=== PATIENT | female | born 1995 | race Caucasian/White ===

== ENCOUNTER 2017-09-26 02:10 | Emergency (ER) | payer SELFPAY ==
[2017-09-26 02:31] LABS: ADD MAN DIFF? NO
[2017-09-26 02:34] LABS: URINE HCG POC HCG NEGATIVE (Negative)
[2017-09-26 02:34] LABS: BASO % 1 % (0-3); EOS # 0.3 x10^3/uL (0.0-0.7); EOS % 3 % (0-3); HEMATOCRIT 37.8 % (36.0-47.0); HEMOGLOBIN 13.1 g/dL (12.0-15.5); LYMPH # 2.1 x10^3/uL (1.0-4.8); LYMPH % 26 % (24-48); MEAN CORPUSCULAR HEMOGLOBIN 29 pg (25-35); MEAN CORPUSCULAR HGB CONC 35 g/dL (31-37); MEAN CORPUSCULAR VOLUME 85 fL (79-100); MONO # 0.7 x10^3/uL (0.0-1.1); MONO % 9 % (0-9); NEUT # 4.8 x10^3uL (1.8-7.7); NEUT % 61 % (31-73); PLATELET COUNT 225 x10^3/uL (140-400); RED BLOOD COUNT 4.47 x10^6/uL (3.50-5.40); RED CELL DISTRIBUTION WIDTH 13.9 % (11.5-14.5); WHITE BLOOD COUNT 7.9 x10^3/uL (4.0-11.0)
[2017-09-26 02:38] LABS: BILIRUBIN,URINE NEGATIVE (NEG); CLARITY,URINE CLEAR; COLOR,URINE YELLOW; GLUCOSE,URINE NEGATIVE (NEG); NITRITE,URINE NEGATIVE (NEG); PH,URINE 6.5; PROTEIN,URINE NEGATIVE (NEG-TRACE); UROBILINOGEN,URINE 0.2 mg/dL (0.2 mg/dL)
[2017-09-26 02:42] LABS: ANION GAP 11 (6-14); BLOOD UREA NITROGEN 15 mg/dL (7-20); BUN/CREATININE RATIO 14 (6-20); CALCIUM 8.4 mg/dL (8.5-10.1); CARBON DIOXIDE 27 mmol/L (21-32); CHLORIDE 106 mmol/L (98-107); CREATININE 1.1 mg/dL (0.6-1.0); GFR 62.1; GLUCOSE 80 mg/dL (70-99); POTASSIUM 3.7 mmol/L (3.5-5.1); SODIUM 144 mmol/L (136-145)
[2017-09-26 02:48] LABS: ALBUMIN 3.2 g/dL (3.4-5.0); ALBUMIN/GLOBULIN RATIO 0.9 (1.0-1.7); ALK PHOS 76 U/L (46-116); ALT (SGPT) 27 U/L (14-59); AST (SGOT) 28 U/L (15-37); BACTERIA,URINE MOD /HPF (0-FEW); RBC,URINE 20-40 /HPF (0-2); SQUAMOUS EPITHELIAL CELL,UR MOD /LPF; TOTAL BILIRUBIN 0.2 mg/dL (0.2-1.0); TOTAL PROTEIN 6.9 g/dL (6.4-8.2)
[2017-09-26] MEDS: KETOROLAC 30 MG/ML INJ. IV (03:16)
[2017-09-26] MEDS: MORPHINE SULFATE 4 MG/ML DISP.SYRIN. IV (03:16)
[2017-09-26] MEDS: ONDANSETRON PF 4 MG/2 ML VIAL. IV (03:16)
[2017-09-26] MEDS: HYDROmorphone 2 MG/ML VIAL IV (04:05)
== END 2017-09-26 04:50 | disposition home or self-care (01) ==
LOC: ER 02:10
DX: N83.209 Unspecified ovarian cyst, unspecified side (principal); F12.10 Cannabis abuse, uncomplicated
CPT/HCPCS: 36415; 76830; 76856; 80053; 81001; 81025; 85025; 96374; 96375; 99285-25; J1170; J1885; J2270; J2405

== ENCOUNTER 2017-10-11 07:10 | Emergency (ER) | payer SELFPAY ==
[2017-10-11 07:58] LABS: ADD MAN DIFF? NO
[2017-10-11 08:01] LABS: BASO # 0.1 x10^3/uL (0.0-0.2); BASO % 1 % (0-3); EOS # 0.3 x10^3/uL (0.0-0.7); EOS % 4 % (0-3); HEMATOCRIT 43.7 % (36.0-47.0); LYMPH % 33 % (24-48); MEAN CORPUSCULAR HEMOGLOBIN 29 pg (25-35); MEAN CORPUSCULAR HGB CONC 34 g/dL (31-37); MEAN CORPUSCULAR VOLUME 85 fL (79-100); MONO # 0.9 x10^3/uL (0.0-1.1); MONO % 10 % (0-9); NEUT # 4.7 x10^3uL (1.8-7.7); NEUT % 53 % (31-73); PLATELET COUNT 273 x10^3/uL (140-400); RED BLOOD COUNT 5.14 x10^6/uL (3.50-5.40); WHITE BLOOD COUNT 8.9 x10^3/uL (4.0-11.0)
[2017-10-11] MEDS: ONDANSETRON PF 4 MG/2 ML VIAL. IV (08:02)
[2017-10-11] MEDS: IV NORMAL SALINE 1000ML BAG 1,000 ML IV (08:02)
[2017-10-11] MEDS: fentaNYL PF VIAL 100 MCG/2 ML VIAL IV (08:03)
[2017-10-11 08:04] LABS: BILIRUBIN,URINE NEGATIVE (NEG); CLARITY,URINE CLEAR; COLOR,URINE YELLOW; GLUCOSE,URINE NEGATIVE (NEG); NITRITE,URINE NEGATIVE (NEG); PROTEIN,URINE NEGATIVE (NEG-TRACE)
[2017-10-11 08:13] LABS: NEG OBC SER NEG; PREG TEST PT QUAL NEGATIVE (NEG)
[2017-10-11 08:14] LABS: ANION GAP 11 (6-14); BLOOD UREA NITROGEN 13 mg/dL (7-20); BUN/CREATININE RATIO 14 (6-20); CALCIUM 8.7 mg/dL (8.5-10.1); CARBON DIOXIDE 23 mmol/L (21-32); CHLORIDE 105 mmol/L (98-107); CREATININE 0.9 mg/dL (0.6-1.0); GFR 78.3; GLUCOSE 92 mg/dL (70-99); POS OBC SER POS; POTASSIUM 3.7 mmol/L (3.5-5.1); SODIUM 139 mmol/L (136-145)
[2017-10-11 08:18] LABS: SQUAMOUS EPITHELIAL CELL,UR MANY /LPF
[2017-10-11 08:19] LABS: ALBUMIN 3.7 g/dL (3.4-5.0); ALK PHOS 89 U/L (46-116); ALT (SGPT) 27 U/L (14-59); AST (SGOT) 20 U/L (15-37); BACTERIA,URINE MODERATE /HPF (0-FEW); RBC,URINE 0 /HPF (0-2); TOTAL BILIRUBIN 0.4 mg/dL (0.2-1.0); TOTAL PROTEIN 7.5 g/dL (6.4-8.2)
[2017-10-11] MEDS: KETOROLAC 30 MG/ML INJ. IV (10:55)
== END 2017-10-11 11:15 | disposition home or self-care (01) ==
LOC: ER 07:10
DX: N83.202 Unspecified ovarian cyst, left side (principal); N83.201 Unspecified ovarian cyst, right side; F90.9 Attention-deficit hyperactivity disorder, unspecified type; F12.10 Cannabis abuse, uncomplicated
CPT/HCPCS: 36415; 76830; 76856; 80053; 81001; 84703; 85025; 87086; 96374; 96375; 99285-25; J1885; J2405; J3010; J7030

== ENCOUNTER 2017-11-16 18:40 | Emergency (ER) | payer SELFPAY ==
[2017-11-16 19:34] LABS: ADD MAN DIFF? NO
[2017-11-16 19:38] LABS: BASO % 0 % (0-3); EOS # 0.1 x10^3/uL (0.0-0.7); EOS % 1 % (0-3); HEMATOCRIT 41.9 % (36.0-47.0); HEMOGLOBIN 13.9 g/dL (12.0-15.5); LYMPH # 1.4 x10^3/uL (1.0-4.8); LYMPH % 10 % (24-48); MEAN CORPUSCULAR HEMOGLOBIN 28 pg (25-35); MEAN CORPUSCULAR HGB CONC 33 g/dL (31-37); MEAN CORPUSCULAR VOLUME 85 fL (79-100); MONO # 0.8 x10^3/uL (0.0-1.1); MONO % 6 % (0-9); NEUT % 84 % (31-73); PLATELET COUNT 225 x10^3/uL (140-400); RED BLOOD COUNT 4.93 x10^6/uL (3.50-5.40); WHITE BLOOD COUNT 14.4 x10^3/uL (4.0-11.0)
[2017-11-16 19:44] LABS: BILIRUBIN,URINE NEGATIVE (NEG); CLARITY,URINE CLEAR; COLOR,URINE YELLOW; GLUCOSE,URINE NEGATIVE (NEG); NITRITE,URINE NEGATIVE (NEG); PROTEIN,URINE NEGATIVE (NEG-TRACE); UROBILINOGEN,URINE 0.2 mg/dL (0.2 mg/dL)
[2017-11-16 19:45] LABS: URINE HCG POC HCG NEGATIVE (Negative)
[2017-11-16] MEDS: ONDANSETRON PF 4 MG/2 ML VIAL. IV (19:47)
[2017-11-16] MEDS: fentaNYL PF VIAL 100 MCG/2 ML VIAL IV ×3 (19:48→22:03)
[2017-11-16 19:49] LABS: ANION GAP 10 (6-14); BLOOD UREA NITROGEN 12 mg/dL (7-20); BUN/CREATININE RATIO 12 (6-20); CALCIUM 8.9 mg/dL (8.5-10.1); CARBON DIOXIDE 26 mmol/L (21-32); CHLORIDE 106 mmol/L (98-107); GFR 69.3; GLUCOSE 86 mg/dL (70-99); POTASSIUM 3.7 mmol/L (3.5-5.1); SODIUM 142 mmol/L (136-145)
[2017-11-16 19:54] LABS: BACTERIA,URINE FEW /HPF (0-FEW); RBC,URINE TNTC /HPF (0-2); WBC,URINE OCC /HPF (0-4)
[2017-11-16 19:55] LABS: SQUAMOUS EPITHELIAL CELL,UR FEW /LPF
[2017-11-16 19:56] LABS: ALBUMIN 3.7 g/dL (3.4-5.0); ALBUMIN/GLOBULIN RATIO 0.9 (1.0-1.7); ALK PHOS 88 U/L (46-116); ALT (SGPT) 22 U/L (14-59); AST (SGOT) 17 U/L (15-37); LIPASE 78 U/L (73-393); TOTAL BILIRUBIN 0.3 mg/dL (0.2-1.0); TOTAL PROTEIN 7.6 g/dL (6.4-8.2)
[2017-11-16] MEDS ORDERED: CONTRAST GIVEN. MC (20:45)
[2017-11-16] MEDS: IOHEXOL 300 MG/ML 100ML VIAL. IV (20:45)
[2017-11-16] MEDS: IV NORMAL SALINE 1000ML BAG 1,000 ML IV (21:51)
[2017-11-16] MEDS ORDERED: IV NORMAL SALINE 1000ML BAG 1,000 ML IV (22:00)
== END 2017-11-16 22:32 | disposition home or self-care (01) ==
LOC: ER 22:32
DX: R10.84 Generalized abdominal pain (principal); N93.9 Abnormal uterine and vaginal bleeding, unspecified; R11.0 Nausea
CPT/HCPCS: 36415; 74177; 76830; 80053; 81001; 81025; 83690; 85025; 96361; 96374; 96375; 96376; 99285-25; J2405; J3010; J7030; Q9967

== ENCOUNTER 2018-01-20 16:35 | Emergency (ER) | payer SELFPAY ==
[~2018-01-20] VITALS: Ht 162.6 cm; Wt 68.0 kg
[~2018-01-20 16:35] MED LIST: HYDR-971 PO; ONDA4TAB10 SL; OXYC-323 PO; TRAM50TA PO
[2018-01-20 17:14] VITALS: BP 97/57
--- NOTE | 2018-01-20 18:10 | RAD ---
Indication: Generalized back pain. Pain since from spinal tap 2 years ago. TECHNIQUE: 3 views of the thoracic spine COMPARISON: None FINDINGS: Thoracic spine is in normal anatomic alignment. No compression deformities. No intervertebral disc space narrowing or significant productive changes to suggest degenerative disc disease. Heart is normal in size. Visualized lungs are clear. IMPRESSION: No acute findings. Electronically signed by: Tarun Starr DO (01/20/2018 6:07 PM) [facility]
--- NOTE | 2018-01-20 18:11 | RAD ---
Indication: Generalized back pain TECHNIQUE: 3 views of the lumbar spine COMPARISON: None FINDINGS: There are 5 lumbar type vertebral bodies. The lumbar spine demonstrates loss of normal lumbar lordosis. This could be due to muscle spasm or positioning. No compression deformities. No intervertebral disc space narrowing or productive changes to suggest degenerative disc disease. SI joints within normal limits. IMPRESSION: No acute findings. Electronically signed by: Tarun Starr DO (01/20/2018 6:08 PM) [facility]
--- NOTE | 2018-01-20 18:17 | PHYS DOC ---
Past Medical History Past Medical History: Bipolar, Depression, Endometriosis Additional Past Medical Histor: ADHD MULTIPLE PERSONALITIES Past Surgical History: No Surgical History Alcohol Use: Occasionally Drug Use: Marijuana Adult General Chief Complaint Chief Complaint: SORE THROAT HPI HPI Patient is a 22 year old female who presents with bilateral dental pain, back pain and a sore throat. The patient states that she is scheduled to have a root canals done on 2 of her back bottom teeth. She is currently taking amoxicillin for the dental pain. She states that she has had back pain ever since she had an epidural placed 2 years ago. She states that she also has developed a sore throat. She denies fevers, nausea or vomiting. She denies spontaneous loss of bowel or bladder or foot drop. Review of Systems Review of Systems Constitutional: Denies fever or chills [] Eyes: Denies change in visual acuity, redness, or eye pain [] HENT: See history of present illness Respiratory: Denies cough or shortness of breath [] Cardiovascular: No additional information not addressed in HPI [] GI: Denies abdominal pain, nausea, vomiting, bloody stools or diarrhea [] : Denies dysuria or hematuria [] Musculoskeletal: See history of present illness Integument: Denies rash or skin lesions [] Neurologic: Denies headache, focal weakness or sensory changes [] Endocrine: Denies polyuria or polydipsia [] All other systems were reviewed and found to be within normal limits, except as documented in this note. Allergies Allergies Allergies Coded Allergies Type Severity Reaction Last Updated Verified No Known Drug Allergies 08/11/14 No Physical Exam Physical Exam Constitutional: Well developed, well nourished, no acute distress, non-toxic appearance. [] HENT: Normocephalic, atraumatic, bilateral external ears normal, the patient has a lower molar on each side that has a filling, mild pharyngeal erythema noted with no exudate Eyes: PERRLA, EOMI, conjunctiva normal, no discharge. [] Neck: Normal range of motion, no tenderness, supple, no stridor. [] Cardiovascular:Heart rate regular rhythm, no murmur [] Lungs & Thorax: Bilateral breath sounds clear to auscultation [] Abdomen: Bowel sounds normal, soft, no tenderness, no masses, no pulsatile masses. [] Skin: Warm, dry, no erythema, no rash. [] Back: Point spinal tenderness with no deformity or step-off noted, no CVA tenderness. [] Extremities: No tenderness, no cyanosis, no clubbing, ROM intact, no edema. [] Neurologic: Alert and oriented X 3, normal motor function, normal sensory function, no focal deficits noted. [] Psychologic: Affect normal, judgement normal, mood normal. [] Current Patient Data Vital Signs Vital Signs Date Time Temp Pulse Resp B/P (MAP) Pulse Ox O2 Delivery O2 Flow Rate FiO2 01/20/18 17:14 98.1 78 18 97/57 (70) 99 Room Air 98.1 Lab Values Laboratory Tests Test 01/20/18 17:27 01/20/18 17:35 Group A Streptococcus Rapid Negative (NEGATIVE) POC Urine HCG, Qualitative Hcg negative (Negative) EKG EKG [] Radiology/Procedures Radiology/Procedures []PATIENT: PATRICK HE AACCOUNT: [id number]#: [id number] : 1995 LOCATION: ER AGE: 22 SEX: F EXAM STATUS: REG ER ORD. PHYSICIAN: ROBERTA CHERY APRN REASON: back pain. PROCEDURE: THORACIC SPINE 3V Indication: Generalized back pain. Pain since from spinal tap 2 years ago. TECHNIQUE: 3 views of the thoracic spine COMPARISON: None FINDINGS: Thoracic spine is in normal anatomic alignment. No compression deformities. No intervertebral disc space narrowing or significant productive changes to suggest degenerative disc disease. Heart is normal in size. Visualized lungs are clear. IMPRESSION: No acute findings. Electronically signed by: Tarun Starr DO (01/20/2018 6:07 PM) [facility] DICTATED and SIGNED BY: TARUN STARR DO DATE: 01/20/18 1806 PATIENT: PATRICK HE A ACCOUNT: [id number] : 1995 LOCATION: ER AGE: 22 SEX: F EXAM STATUS: REG ER ORD. PHYSICIAN: ROBERTA CHERY APRN REASON: back pain. PROCEDURE: LUMBAR SPINE 2-3V Indication: Generalized back pain TECHNIQUE: 3 views of the lumbar spine COMPARISON: None FINDINGS: There are 5 lumbar type vertebral bodies. The lumbar spine demonstrates loss of normal lumbar lordosis. This could be due to muscle spasm or positioning. No compression deformities. No intervertebral disc space narrowing or productive changes to suggest degenerative disc disease. SI joints within normal limits. IMPRESSION: No acute findings. Electronically signed by: Tarun Starr DO (01/20/2018 6:08 PM) [facility] DICTATED and SIGNED BY: TARUN STARR DO DATE: 01/20/181806 Course & Med Decision Making Course & Med Decision Making Pertinent Labs and Imaging studies reviewed. (See chart for details) []I explained to the patient that the amoxicillin she is currently taking for her teeth would treat any form of strep throat. Her strep test and test were both negative in the emergency department. Imaging did not find an acute cause for her chronic back pain. She is encouraged to follow up with her primary care provider for further investigation. Staff Physician Addendum: I was working in the ER during the course of this patient's visit. I was available for consultation as needed, but I was not directly involved in the care of this patient. Dragon Disclaimer Dragon Disclaimer This electronic medical record was generated, in whole or in part, using a voice recognition dictation system. Departure Departure Impression: Primary Impression: Back pain Additional Impression: Pharyngitis Disposition: 01 HOME, SELF-CARE Condition: STABLE Referrals: NO PCP (PCP) Patient Instructions: Back Pain, Adult, [id number], Viral and Bacterial Pharyngitis Additional Instructions: Continue to take the amoxicillin for your tooth. Follow-up with your dentist for your scheduled root canals. Follow-up with a primary care provider or a neurosurgeon for reevaluation of your chronic back pain. The amoxicillin your currently taking for your tooth should clear any form of bacterial pharyngitis. Viral pharyngitis may take 3-5 days to resolve. You may use salt water gargles. You may take ibuprofen or Tylenol for pain. Problem Qualifiers ROBERTA CHERY APRN Jan 20, 2018 18:17 PURNIMA STRICKLAND MD Jan 21, 2018 17:55
== END 2018-01-20 18:26 | disposition home or self-care (01) ==
LOC: ER 16:35
DX: J02.9 Acute pharyngitis, unspecified (principal); K08.89 Other specified disorders of teeth and supporting structures; M54.9 Dorsalgia, unspecified; F31.9 Bipolar disorder, unspecified
CPT/HCPCS: 72072; 72100; 81025; 87070; 87880; 99285-25

== ENCOUNTER 2018-03-26 09:43 | Emergency (ER) | payer SELFPAY ==
[~2018-03-26] VITALS: Ht 162.6 cm; Wt 72.6 kg
[2018-03-26 09:54] VITALS: BP 110/61
[2018-03-26] MEDS ORDERED: NAPROXEN 500 MG TABLET PO STA (09:58)
[2018-03-26] MEDS ORDERED: CYCL10TA2 PO (10:08)
[2018-03-26] MEDS ORDERED: METH4TAB2 PO (10:08)
[2018-03-26] MEDS ORDERED: DICL50TA4 PO (10:08)
--- NOTE | 2018-03-26 10:08 | PHYS DOC ---
Past Medical History Past Medical History: Bipolar, Depression, Endometriosis Additional Past Medical Histor: ADHD MULTIPLE PERSONALITIES Past Surgical History: No Surgical History Alcohol Use: None Drug Use: Marijuana Adult General Chief Complaint Chief Complaint: LOWER BACK PAIN OR INJURY [facility] HPI Patient is a 22 year old female who presents complaining of 9 out of 10 throbbing bilateral low back pain radiating to bilateral lower extremities that appears to be chronic since 2012. Patient denies any known injury. Denies any loss of bowel bladder function. Has been taking ibuprofen with no relief. Review of Systems Review of Systems Constitutional: Denies fever or chills [] History of things we didn't like us to unnecessar Respiratory: Denies cough or shortness of breath [] Cardiovascular: No additional information not addressed in HPI [] GI: Denies abdominal pain, nausea, vomiting, bloody stools or diarrhea [] : Denies dysuria or hematuria [] Musculoskeletal: Denies back pain or joint pain [] Integument: Denies rash or skin lesions [] Neurologic: Denies headache, focal weakness or sensory changes [] All other systems were reviewed and found to be within normal limits, except as documented in this note. Current Medications Current Medications Current Medications Medications (Trade) Dose Ordered Sig/Monique Start Time Stop Time Status Last Admin Dose Admin Acetaminophen/ Hydrocodone Bitart (Lortab 5/325) 2 tab 1X ONCE 03/26/18 10:30 03/26/18 10:31 Cyclobenzaprine HCl (Flexeril) 10 mg 1X ONCE 03/26/18 10:00 03/26/18 10:01 UNV Naproxen (Naprosyn) 500 mg 1X STAT 03/26/18 09:58 03/26/18 09:59 UNV Allergies Allergies Allergies Coded Allergies Type Severity Reaction Last Updated Verified No Known Drug Allergies 08/11/14 No Physical Exam Physical Exam Constitutional: Well developed, well nourished, no acute distress, non-toxic appearance. [] Cardiovascular:Heart rate regular rhythm, no murmur [] Lungs & Thorax: Bilateral breath sounds clear to auscultation [] Abdomen: Bowel sounds normal, soft, no tenderness, no masses, no pulsatile masses. [] Skin: Warm, dry, no erythema, no rash. [] Back: Diffuse tenderness bilateral lumbar spine, no midline lumbar spine tenderness, no CVA tenderness. Positive bilateral straight leg raises Extremities: No tenderness, no cyanosis, no clubbing, ROM intact, no edema. [] Neurologic: Alert and oriented X 3, normal motor function, normal sensory function, no focal deficits noted. [] Psychologic: Affect normal, judgement normal, mood normal. [] Current Patient Data Vital Signs Vital Signs Date Time Temp Pulse Resp B/P (MAP) Pulse Ox O2 Delivery O2 Flow Rate FiO2 03/26/18 09:54 98.5 99 18 110/61 (77) 98 Room Air 98.5 EKG EKG [] Radiology/Procedures Radiology/Procedures [] Course & Med Decision Making Course & Med Decision Making Pertinent Labs and Imaging studies reviewed. (See chart for details) This is a 22-year-old female patient presenting to the ED today with chronic low back pain with sciatica, no known injury. Will be discharged with cyclobenzaprine, Medrol Dosepak and diclofenac. Follow-up with PCP in 1-2 weeks. Heat to ice recommended to the lumbar spine. Dragon Disclaimer Dragon Disclaimer This electronic medical record was generated, in whole or in part, using a voice recognition dictation system. Departure Departure Impression: Primary Impression: Chronic low back pain Additional Impressions: Sciatica of right side Sciatica of left side Disposition: 01 HOME, SELF-CARE Condition: STABLE Referrals: NO PCP (PCP) KAREN RODRIGUEZ MD follow up next week Patient Instructions: Chronic Back Pain, Sciatica Additional Instructions: You were evaluated in the emergency room for chronic low back pain with sciatica. We highly recommend you follow-up with your own primary care doctor. Take the prescribed medicines as needed for pain. You can apply heat or ice to the lumbar spine. Come back to the ED at any point symptoms worsen. Scripts Methylprednisolone (MEDROL) 4 Mg Tab.ds.pk 1 PKG PO UD, #1 PKG Prov: [employer] 03/26/18 Cyclobenzaprine Hcl (CYCLOBENZAPRINE HCL) 10 Mg Tablet 1 TAB PO TID, #30 TAB Prov: [employer] MA[employer]GER 03/26/18 Diclofenac Sodium (DICLOFENAC SODIUM) 50 Mg Tablet.dr 1 TAB PO BID, #20 TAB 0 Refills Prov: [employer] MA[employer]GER 03/26/18 Problem Qualifiers Primary Impression: Chronic low back pain Back pain laterality: bilateral Sciatica presence: with sciatica Sciatica laterality: bilateral sciatica Qualified Codes: M54.42 - Lumbago with sciatica, left side; M54.41 - Lumbago with sciatica, right side; G89.29 - Other chronic pain CLINTON LAWLER APRN Mar 26, 2018 10:08
[2018-03-26] MEDS ORDERED: CYCLOBENZAPRINE 10 MG TABLET. PO ONE (10:30)
[2018-03-26] MEDS ORDERED: HYDROcodone/APAP 5/325MG 1 TAB TABLET PO ONE (10:30)
== END 2018-03-26 10:18 | disposition home or self-care (01) ==
LOC: ER 09:43
DX: M54.42 Lumbago with sciatica, left side (principal); M54.41 Lumbago with sciatica, right side; G89.29 Other chronic pain; F31.9 Bipolar disorder, unspecified; F90.9 Attention-deficit hyperactivity disorder, unspecified type
CPT/HCPCS: 99284

== ENCOUNTER 2018-06-17 09:09 | Emergency (ER) | payer SELFPAY ==
[~2018-06-17] VITALS: Ht 162.6 cm; Wt 61.2 kg
[~2018-06-17 09:09] MED LIST changes: +CYCL10TA2 PO; +DICL50TA4 PO; +HYDR-3164 PO; -HYDR-971 PO; +METH4TAB2 PO; -OXYC-323 PO; +OXYC1TAB15 PO
[2018-06-17] MEDS ORDERED: FAMOTIDINE 20 MG/2 ML VIAL IVP ONE (09:30)
[2018-06-17] MEDS ORDERED: IV NORMAL SALINE 1000ML BAG 1,000 ML IV ONE (09:30)
--- NOTE | 2018-06-17 09:34 | PHYS DOC ---
Past Medical History Past Medical History: Bipolar, Depression, Endometriosis Additional Past Medical Histor: ADHD MULTIPLE PERSONALITIES Past Surgical History: No Surgical History Alcohol Use: None Drug Use: Marijuana Adult General Chief Complaint Chief Complaint: NAUSEA/VOMITING/DIARRHA HPI HPI Patient is a 22 year old female with history of bipolar, endometriosis, depression, who presents today with chronic nausea and vomiting. Patient states symptoms have been going on for a long time. Patient states she intermittently has generalized 6 out of 10 abdominal pain. She states she's been worked up for this abdominal pain before and they could not find any acute cause for her symptoms. Denies any fever urgency frequency or dysuria. Denies any hematuria. She states she smokes marijuana. Review of Systems Review of Systems Constitutional: Denies fever or chills [] Eyes: Denies change in visual acuity, redness, or eye pain [] HENT: Denies nasal congestion or sore throat [] Respiratory: Denies cough or shortness of breath [] Cardiovascular: No additional information not addressed in HPI [] GI: Reports nausea, vomiting, generalized abdominal pain, denies bloody stools or diarrhea [] : Denies dysuria or hematuria [] Musculoskeletal: Denies back pain or joint pain [] Integument: Denies rash or skin lesions [] Neurologic: Denies headache, focal weakness or sensory changes [] All other systems were reviewed and found to be within normal limits, except as documented in this note. Current Medications Current Medications Current Medications Medications (Trade) Dose Ordered Sig/Monique Start Time Stop Time Status Last Admin Dose Admin Famotidine (Pepcid Vial) 20 mg 1X ONCE 06/17/18 09:30 06/17/18 09:33 DC 06/17/18 10:28 20 MG Sodium Chloride 1,000 ml @ 1,000 mls/hr 1X ONCE 06/17/18 09:30 06/17/18 10:29 DC 06/17/18 10:28 1,000 MLS/HR Allergies Allergies Allergies Coded Allergies Type Severity Reaction Last Updated Verified No Known Drug Allergies 08/11/14 No Physical Exam Physical Exam Constitutional: Well developed, well nourished, no acute distress, non-toxic appearance. [] HENT: Normocephalic, atraumatic, bilateral external ears normal, oropharynx moist, no oral exudates, nose normal. [] Eyes: PERRLA, EOMI, conjunctiva normal, no discharge. [] Neck: Normal range of motion, no tenderness, supple, no stridor. [] Cardiovascular:Heart rate regular rhythm, no murmur [] Lungs & Thorax: Bilateral breath sounds clear to auscultation [] Abdomen: Rounded abdomen. Bowel sounds normal, soft, no tenderness, no masses, no pulsatile masses. [] Skin: Warm, dry, no erythema, no rash. [] Back: No tenderness, no CVA tenderness. [] Extremities: No tenderness, no cyanosis, no clubbing, ROM intact, no edema. [] Neurologic: Alert and oriented X 3, normal motor function, normal sensory function, no focal deficits noted. [] Psychologic: Affect normal, judgement normal, mood normal. [] Current Patient Data Vital Signs Vital Signs Date Time Temp Pulse Resp B/P (MAP) Pulse Ox O2 Delivery O2 Flow Rate FiO2 06/17/18 09:21 97.8 75 16 105/74 (84) 99 Room Air 97.8 Lab Values Laboratory Tests Test 06/17/18 09:25 06/17/18 09:35 06/17/18 09:44 06/17/18 10:26 Urine Collection Type Unknown Urine Color Yellow Urine Clarity Clear Urine pH 5.5 Urine Specific [place] 1.020 Urine Protein Negative mg/dL (NEG-TRACE) Urine Glucose (UA) Negative mg/dL (NEG) Urine Ketones (Stick) Negative mg/dL (NEG) Urine Blood Negative (NEG) Urine Nitrite Negative (NEG) Urine Bilirubin Negative (NEG) Urine Urobilinogen Dipstick 0.2 mg/dL (0.2 mg/dL) Urine Leukocyte Esterase Negative (NEG) Urine RBC 0 /HPF (0-2) Urine WBC Occ /HPF (0-4) Urine Squamous Epithelial Cells Occ /LPF Urine Bacteria 0 /HPF (0-FEW) Urine Mucus Mod /LPF Urine Opiates Screen Neg (NEG) Urine Methadone Screen Neg (NEG) Urine Barbiturates Neg (NEG) Urine Phencyclidine Screen Neg (NEG) Urine Amphetamine/Methamphetamine Neg (NEG) Urine Benzodiazepines Screen Neg (NEG) Urine Cocaine Screen Neg (NEG) Urine Cannabinoids Screen Pos (NEG) Urine Ethyl Alcohol Neg (NEG) White Blood Count 9.1 x10^3/uL (4.0-11.0) Red Blood Count 4.71 x10^6/uL (3.50-5.40) Hemoglobin 13.8 g/dL (12.0-15.5) Hematocrit 40.5 % (36.0-47.0) Mean Corpuscular Volume 86 fL (79-100) Mean Corpuscular Hemoglobin 29 pg (25-35) Mean Corpuscular Hemoglobin Concent 34 g/dL (31-37) Red Cell Distribution Width 13.9 % (11.5-14.5) Platelet Count 219 x10^3/uL (140-400) Neutrophils (%) (Auto) 72 % (31-73) Lymphocytes (%) (Auto) 17 % (24-48) L Monocytes (%) (Auto) 7 % (0-9) Eosinophils (%) (Auto) 3 % (0-3) Basophils (%) (Auto) 1 % (0-3) Neutrophils # (Auto) 6.6 x10^3uL (1.8-7.7) Lymphocytes # (Auto) 1.6 x10^3/uL (1.0-4.8) Monocytes # (Auto) 0.6 x10^3/uL (0.0-1.1) Eosinophils # (Auto) 0.2 x10^3/uL (0.0-0.7) Basophils # (Auto) 0.1 x10^3/uL (0.0-0.2) Ethyl Alcohol Level < 10 mg/dL (0-10) POC Urine HCG, Qualitative Hcg negative (Negative) Sodium Level 140 mmol/L (136-145) Potassium Level 3.8 mmol/L (3.5-5.1) Chloride Level 106 mmol/L (98-107) Carbon Dioxide Level 24 mmol/L (21-32) Anion Gap 10 (6-14) Blood Urea Nitrogen 9 mg/dL (7-20) Creatinine 0.8 mg/dL (0.6-1.0) Estimated GFR (Cockcroft-Gault) 89.7 BUN/Creatinine Ratio 11 (6-20) Glucose Level 98 mg/dL (70-99) Calcium Level 8.8 mg/dL (8.5-10.1) Total Bilirubin 0.2 mg/dL (0.2-1.0) Aspartate Amino Transferase (AST) 22 U/L (15-37) Alanine Aminotransferase (ALT) 37 U/L (14-59) Alkaline Phosphatase 79 U/L (46-116) Total Protein 6.5 g/dL (6.4-8.2) Albumin 3.0 g/dL (3.4-5.0) L Albumin/Globulin Ratio 0.9 (1.0-1.7) L Lipase 50 U/L (73-393) L Laboratory Tests 06/17/18 09:35 Laboratory Tests 06/17/18 10:26 EKG EKG [] Radiology/Procedures Radiology/Procedures [] Course & Med Decision Making Course & Med Decision Making Pertinent Labs and Imaging studies reviewed. (See chart for details) This is a 22-year-old female patient presenting to the ED today with nausea, vomiting and generalized abdominal pain that is chronic in nature. Patient uses marijuana. She was educated to consider not using this drug considering its side effects of marijuana induced nausea and vomiting. CBC, CMP, lipase negative for any acute findings. Negative urine hCG, urine analysis is negative for infection, UDS noted for marijuana use. Patient was advised to consider not using marijuana. Discharged with Zofran. Provided GI for follow-up. Dragon Disclaimer Dragon Disclaimer This electronic medical record was generated, in whole or in part, using a voice recognition dictation system. Departure Departure Impression: Primary Impression: Cyclic vomiting syndrome Additional Impression: Marijuana use Disposition: 01 HOME, SELF-CARE Condition: STABLE Referrals: ROSAURA TAO DO (PCP) Follow-up with your own doctor in one week CEM MARRERO MD Follow-up in one week Patient Instructions: Cyclic Vomiting Syndrome, Marijuana Abuse-Brief Additional Instructions: You were evaluated in the emergency room for nausea vomiting and abdominal pain , we highly suspect your symptoms are coming from marijuana use, consider not using this drug. Scripts Ondansetron (ONDANSETRON ODT) 4 Mg Tab.rapdis 1 TAB PO PRN Q6-8HRS, #16 TAB Prov: CLINTON LAWLER ALEIDA 06/17/18 Problem Qualifiers Primary Impression: Cyclic vomiting syndrome Vomiting Intractability: non-intractable Nausea presence: with nausea Qualified Codes: G43.A0 - Cyclical vomiting, not intractable CLINTON LAWLER ALEIDA Jun 17, 2018 09:34
[2018-06-17 09:47] LABS: BASO # 0.1 x10^3/uL (0.0-0.2); BASO % 1 % (0-3); EOS # 0.2 x10^3/uL (0.0-0.7); EOS % 3 % (0-3); HEMATOCRIT 40.5 % (36.0-47.0); HEMOGLOBIN 13.8 g/dL (12.0-15.5); LYMPH # 1.6 x10^3/uL (1.0-4.8); LYMPH % 17 % (24-48); MEAN CORPUSCULAR HEMOGLOBIN 29 pg (25-35); MEAN CORPUSCULAR HGB CONC 34 g/dL (31-37); MEAN CORPUSCULAR VOLUME 86 fL (79-100); MONO # 0.6 x10^3/uL (0.0-1.1); MONO % 7 % (0-9); NEUT # 6.6 x10^3uL (1.8-7.7); NEUT % 72 % (31-73); PLATELET COUNT 219 x10^3/uL (140-400); RED BLOOD COUNT 4.71 x10^6/uL (3.50-5.40); RED CELL DISTRIBUTION WIDTH 13.9 % (11.5-14.5); WHITE BLOOD COUNT 9.1 x10^3/uL (4.0-11.0)
[2018-06-17 09:53] LABS: BILIRUBIN,URINE NEGATIVE (NEG); CLARITY,URINE CLEAR; COLOR,URINE YELLOW; NITRITE,URINE NEGATIVE (NEG); PH,URINE 5.5; PROTEIN,URINE NEGATIVE (NEG-TRACE); UROBILINOGEN,URINE 0.2 mg/dL (0.2 mg/dL)
[2018-06-17 10:06] LABS: BACTERIA,URINE 0 /HPF (0-FEW); RBC,URINE 0 /HPF (0-2); SQUAMOUS EPITHELIAL CELL,UR OCC /LPF; WBC,URINE OCC /HPF (0-4)
[2018-06-17 10:08] LABS: BARBITURATES NEG (NEG); BENZODIAZEPINES NEG (NEG); CANNABINOIDS POS (NEG); COCAINE NEG (NEG); METHADONE NEG (NEG); OPIATES NEG (NEG); PHENCYCLIDINE NEG (NEG)
[2018-06-17 10:12] LABS: AMPHETAMINE/METHAMPHETAMINE NEG (NEG)
[2018-06-17 11:26] LABS: ALBUMIN/GLOBULIN RATIO 0.9 (1.0-1.7); CALCIUM 8.8 mg/dL (8.5-10.1); CREATININE 0.8 mg/dL (0.6-1.0); GFR 89.7; POTASSIUM 3.8 mmol/L (3.5-5.1); TOTAL BILIRUBIN 0.2 mg/dL (0.2-1.0); TOTAL PROTEIN 6.5 g/dL (6.4-8.2)
[2018-06-17] MEDS ORDERED: ONDA4TAB12 PO (12:22)
[2018-06-17 12:25] VITALS: BP 99/56
== END 2018-06-17 12:32 | disposition home or self-care (01) ==
LOC: ER 09:09
DX: G43.A0 Cyclical vomiting, in migraine, not intractable (principal); F12.20 Cannabis dependence, uncomplicated; R10.84 Generalized abdominal pain; F31.9 Bipolar disorder, unspecified; F90.9 Attention-deficit hyperactivity disorder, unspecified type
CPT/HCPCS: 36415; 80053; 80307; 81001; 81025; 83690; 85025; 96361; 96374; 99284; G0480; J3490; J7030; 99285-25

== ENCOUNTER 2019-04-25 01:13 | Emergency (ER) | payer SELFPAY ==
[~2019-04-25] VITALS: Ht 165.1 cm; Wt 90.7 kg
[~2019-04-25 01:13] MED LIST changes: +ONDA4TAB12 PO
[2019-04-25 01:25] VITALS: BP 116/65
--- NOTE | 2019-04-25 01:44 | PHYS DOC ---
Past Medical History Past Medical History: Bipolar, Depression, Endometriosis, Other Additional Past Medical Histor: ADHD,MULTIPLE PERSONALITIES Past Surgical History: No Surgical History Alcohol Use: None Drug Use: Marijuana Adult General Chief Complaint Chief Complaint: BREAST PAIN/INJURY HPI HPI Patient is a 23 year old female bilateral breast pain 2 weeks. This evening, the patient's right breast bothers her more than the right. Patient has large pendulous breasts with history of chronic back pain for which she sees a chiropractor. She denies nipple discharge, rash, erythema, warmth or risk of . Does not report lumps or masses. Patient states she is exclusively in a lesbian relationship. [] Review of Systems Review of Systems Review symptoms as per history of present illness. All other systems were reviewed and found to be within normal limits, except as documented in this note. Current Medications Current Medications Current Medications Medications (Trade) Dose Ordered Sig/Monique Start Time Stop Time Status Last Admin Dose Admin Acetaminophen (Tylenol) 1,000 mg 1X ONCE 04/25/19 01:30 04/25/19 01:31 UNV Ibuprofen (Motrin) 800 mg 1X ONCE 04/25/19 01:30 04/25/19 01:31 UNV Allergies Allergies Allergies Coded Allergies Type Severity Reaction Last Updated Verified No Known Drug Allergies 08/11/14 No Physical Exam Physical Exam Constitutional: Well developed, well nourished, no acute distress, non-toxic appearance. [] HENT: Normocephalic, atraumatic, bilateral external ears normal, oropharynx moist, no oral exudates, nose normal. [] Eyes: PERRLA, EOMI, conjunctiva normal, no discharge. [] Lungs & Thorax: Bilateral breath sounds clear to auscultation [] Breast: Large symmetric pendulous breasts without inflammation, erythema, rash or areolar discharge. No appreciated masses. Generalized tenderness of right upper pole of breast. [] Neurologic: Alert and oriented X 3, normal motor function, normal sensory function, no focal deficits noted. [] Psychologic: Affect normal, judgement normal, mood normal. [] EKG EKG [] Radiology/Procedures Radiology/Procedures [] Course & Med Decision Making Course & Med Decision Making Pertinent Labs and Imaging studies reviewed. (See chart for details) [Ibuprofen Tylenol given. Recommendations are for supportive care follow-up with local PCP for further evaluation and management.] Dragon Disclaimer Dragon Disclaimer This electronic medical record was generated, in whole or in part, using a voice recognition dictation system. Departure Departure Impression: Primary Impression: Breast pain, right Disposition: HOME, SELF-CARE Condition: STABLE Patient Instructions: Breast Tenderness Additional Instructions: Please take ibuprofen and Tylenol for breast pain and follow-up with your local PCP for further evaluation. MYRANDA DIAZ DO Apr 25, 2019 01:44
[2019-04-25] MEDS ORDERED: IBUPROFEN 400 MG TABLET. PO ONE (02:00)
[2019-04-25] MEDS ORDERED: ACETAMINOPHEN 500 MG TABLET PO ONE (02:00)
== END 2019-04-25 02:05 | disposition home or self-care (01) ==
LOC: ER 01:13
DX: N64.4 Mastodynia (principal); G89.29 Other chronic pain
CPT/HCPCS: 99283

== ENCOUNTER 2019-06-10 12:32 | Emergency (ER) | payer SELFPAY ==
[2019-06-10 14:00] VITALS: BP 138/78
[2019-06-10 14:59] LABS: INFLUENZA A PATIENT NEGATIVE (NEGATIVE); INFLUENZA B PATIENT NEGATIVE (NEGATIVE)
[2019-06-10] MEDS ORDERED: ONDANSETRON ODT 4 MG TAB.RAPDIS. PO ONE (15:15)
--- NOTE | 2019-06-10 15:39 | RAD ---
Two-view chest dated 06/10/2019. No comparison available. CLINICAL INDICATION: Cough. FINDINGS: PA and lateral views obtained. Heart and mediastinal contours within normal limits. Lungs are clear. No consolidation or pleural effusion. No pneumothorax. IMPRESSION: No acute radiographic abnormality. Electronically signed by: Marvin May MD (06/10/2019 3:36 PM) [facility]
[2019-06-10] MEDS ORDERED: ACET325T9 PO (16:11)
[2019-06-10] MEDS ORDERED: ONDA4TAB12 PO (16:11)
[2019-06-10] MEDS ORDERED: AZIT250T6 PO (16:11)
[2019-06-10] MEDS ORDERED: METH4TAB2 PO (16:11)
[2019-06-10] MEDS ORDERED: ALBU2.5V8 INH (16:11)
--- NOTE | 2019-06-10 16:12 | PHYS DOC ---
Past Medical History Past Medical History: Anxiety, Bipolar, Depression Additional Past Medical Histor: BORDERLINE PERSONALITY DISORDER Past Surgical History: No Surgical History Alcohol Use: None Drug Use: Marijuana Adult General Chief Complaint Chief Complaint: SORE THROAT HPI HPI Patient is a 23 year old female who presents with nausea, vomiting, fever, cough. 2 days. Patient states today she coughed up some green mucus with blood streaking in it. States she took children's Tylenol pain fever last night to help her fever. Patient rates her pain 9 out of 10. Review of Systems Review of Systems Constitutional: fever or chills [] Eyes: Denies change in visual acuity, redness, or eye pain [] HENT: nasal congestion or sore throat [] Respiratory: cough or shortness of breath [] GI: Denies abdominal pain. + nausea, +vomiting, denies bloody stools or diarrhea [] All other systems were reviewed and found to be within normal limits, except as documented in this note. Current Medications Current Medications Current Medications Medications (Trade) Dose Ordered Sig/Monique Start Time Stop Time Status Last Admin Dose Admin Ondansetron HCl (Zofran Odt) 4 mg 1X ONCE 06/10/19 15:15 06/10/19 15:16 DC 06/10/19 15:26 4 MG Allergies Allergies Allergies Coded Allergies Type Severity Reaction Last Updated Verified No Known Drug Allergies 08/11/14 No Physical Exam Physical Exam Constitutional: Well developed, well nourished, no acute distress, non-toxic appearance. [] HENT: Normocephalic, atraumatic, bilateral external ears normal, oropharynx moist, no oral exudates, nose normal. Throat red with no swelling or exudates. [] Eyes: PERRLA, EOMI, conjunctiva normal, no discharge. [] Neck: Normal range of motion, no tenderness, supple, no stridor. [] Cardiovascular:Heart rate regular rhythm, no murmur [] Lungs & Thorax: Bilateral breath sounds clear to auscultation [] Abdomen: Bowel sounds normal, soft, no tenderness, no masses, no pulsatile masses. [] Skin: Warm, dry, no erythema, no rash. [] Back: No tenderness, no CVA tenderness. [] Extremities: No tenderness, no cyanosis, no clubbing, ROM intact, no edema. [] Neurologic: Alert and oriented X 3, normal motor function, normal sensory function, no focal deficits noted. [] Psychologic: Affect normal, judgement normal, mood normal. [] Current Patient Data Vital Signs Vital Signs Date Time Temp Pulse Resp B/P (MAP) Pulse Ox O2 Delivery O2 Flow Rate FiO2 06/10/19 14:00 98.9 108 17 138/78 (98) 97 98.9 Lab Values Laboratory Tests Test 06/10/19 14:02 Influenza Type A Antigen Negative (NEGATIVE) Influenza Type B Antigen Negative (NEGATIVE) EKG EKG [] Radiology/Procedures Radiology/Procedures [] Impressions: [facility] [address] [place] [address] IMAGING REPORT Signed PATIENT: PATRICK HE AACCOUNT: [id number] : 1995 LOCATION: ER AGE: 23 SEX: F EXAM STATUS: REG ER ORD. PHYSICIAN: PATY PERLA APRN REASON: cough PROCEDURE: CHEST PA & LATERAL Two-view chest dated 06/10/2019. No comparison available. CLINICAL INDICATION: Cough. FINDINGS: PA and lateral views obtained. Heart and mediastinal contours within normal limits. Lungs are clear. No consolidation or pleural effusion. No pneumothorax. IMPRESSION: No acute radiographic abnormality. Electronically signed by: Marvin May MD (06/10/2019 3:36 PM) [facility] DICTATED and SIGNED BY: MARVIN MAY MD DATE: 06/10/19 1536 Course & Med Decision Making Course & Med Decision Making Influenza negative. Strep negative. Alert and oriented. Lungs are clear to auscultation all lobes. Abdomen soft and nontender. Speaks in full clear sentences. Skin pink warm and dry. Mucous membranes are moist. Ambulatory with a steady gait. Vital signs within normal limits. Tympanic so white. Throat is reddened but there is no swelling or exudates. Chest x-ray shows no acute fin dings. I Ordered a breathing treatment and prednisone for the patient. Dragon Disclaimer Dragon Disclaimer This electronic medical record was generated, in whole or in part, using a voice recognition dictation system. Departure Departure Impression: Primary Impression: Cough Additional Impressions: Nausea & vomiting Sore throat Disposition: HOME, SELF-CARE Condition: STABLE Referrals: ROSAURA TAO DO (PCP) Patient Instructions: Cough, Adult, Nausea and Vomiting, [id number], Sore Throat, [id number] Additional Instructions: Follow-up with your primary care provider. Take medications as prescribed. Your chest xray was normal. Scripts Acetaminophen (TYLENOL) 325 Mg Tablet 2 TAB PO PRN Q6HRS, #30 TAB Prov: PATY PERLA APRN 06/10/19 Ondansetron (ONDANSETRON ODT) 4 Mg Tab.rapdis 1 TAB PO PRN Q6-8HRS, #16 TAB Prov: PATY PERLA APRN 06/10/19 Albuterol Sulfate (Proair Hfa) 8.5 Gm Hfa.aer.ad 1 PUFF INH PRN Q6HRS PRN for SHORTNESS OF BREATH, #1 INHALER Prov: PATY PERLA APRN 06/10/19 Methylprednisolone (MEDROL) 4 Mg Tab.ds.pk 1 PKG PO UD, #1 PKG Prov: PATY PERLA APRN 06/10/19 Azithromycin (AZITHROMYCIN TABLET) 250 Mg Tablet 1 PKG PO UD for 5 Days, #6 TAB 0 Refills 2 the first day followed by 1 for days 2-5 Prov: PATY PERLA APRN 06/10/19 Problem Qualifiers Additional Impressions: Nausea & vomiting Vomiting type: unspecified Vomiting Intractability: non-intractable Qualified Codes: R11.2 - Nausea with vomiting, unspecified PATY PERLA INVENTORY COORDINATOR Jun 10, 2019 16:11
== END 2019-06-10 16:20 | disposition home or self-care (01) ==
LOC: ER 12:32
DX: J02.9 Acute pharyngitis, unspecified (principal); R05 Cough; R11.2 Nausea with vomiting, unspecified; R50.9 Fever, unspecified; F41.9 Anxiety disorder, unspecified; F32.9 Major depressive disorder, single episode, unspecified; F12.90 Cannabis use, unspecified, uncomplicated
CPT/HCPCS: 71046; 87070; 87804; 87880; 99285; Q0162

== ENCOUNTER 2019-12-08 01:31 | Emergency (ER) | payer SELFPAY ==
[~2019-12-08] VITALS: Ht 162.6 cm; Wt 83.9 kg
[~2019-12-08 01:31] MED LIST changes: +ACET325T9 PO; +ALBU2.5V8 INH; +AZIT250T6 PO
[2019-12-08] MEDS ORDERED: traMADol 50 MG TABLET ONE (02:03)
[2019-12-08] MEDS ORDERED: HYDR-3164 PO (02:03)
--- NOTE | 2019-12-08 02:04 | PHYS DOC ---
Past Medical History Past Medical History: Anxiety, Bipolar, Depression Additional Past Medical Histor: BORDERLINE PERSONALITY DISORDER Past Surgical History: No Surgical History Smoking Status: Current Every Day Smoker Alcohol Use: None Drug Use: Marijuana General Adult EDM: Chief Complaint: EARACHE/EAR PAIN HPI: HPI: Patient is a 24 year old female who presents for evaluation of right ear pain that has been progressing over the past 4 to 5 days. Patient has been swimming and got water in her ear this past weekend. She states the pain radiates around her ear and down into her neck right side. She has pain with any amount of movement to that affected ear. Patient has some pain with swallowing as well. There is no reported fevers or chills. Patient otherwise benign-appearing Review of Systems: Review of Systems: Constitutional: Denies fever or chills. [] Eyes: Denies change in visual acuity. [] HENT: Denies nasal congestion or sore throat, right ear pain. [] Respiratory: mild recent cough no shortness of breath. [] Cardiovascular: Denies chest pain or edema. [] GI: Denies abdominal pain, nausea, vomiting, bloody stools or diarrhea. [] : Denies dysuria. [] Musculoskeletal: Denies back pain or joint pain. [] Integument: Denies rash. [] Neurologic: Denies headache, focal weakness or sensory changes. [] Endocrine: Denies polyuria or polydipsia. [] Lymphatic: Denies swollen glands. [] Psychiatric: Denies depression or anxiety. [] Heart Score: Risk Factors: Risk Factors: DM, Current or recent (<one month) smoker, HTN, HLP, family history of CAD, obesity. Risk Scores: Score 0 - 3: 2.5% MACE over next 6 weeks - Discharge Home Score 4 - 6: 20.3% MACE over next 6 weeks - Admit for Clinical Observation Score 7 - 10: 72.7% MACE over next 6 weeks - Early Invasive Strategies Allergies: Allergies: Allergies Coded Allergies Type Severity Reaction Last Updated Verified No Known Drug Allergies 08/11/14 No Physical Exam: PE: Constitutional: Well developed, well nourished, mild acute distress, non-toxic appearance. [] HENT: Normocephalic, atraumatic, bilateral external ears normal, oropharynx moist, no oral exudates, nose normal, cerumen impaction left ear, right ear shows erythema to right ear canal, also cerumen present and the right TM not clearly visualized. [] Eyes: PERRL, EOMI, conjunctiva normal, no discharge. [] Neck: Normal range of motion, mild right lateral neck tenderness, supple, no stridor. [] Cardiovascular:Heart rate regular rhythm, no murmur [] Lungs & Thorax: Bilateral breath sounds clear to auscultation [] Abdomen: Bowel sounds normal, soft, no tenderness, no masses, no pulsatile masses. [] Skin: Warm, dry, no erythema, no rash. [] Back: No tenderness. [] Extremities: No tenderness, ROM intact, no edema. [] Neurologic: Alert and oriented, normal motor function, normal sensory function, no focal deficits noted. [] Psychologic: Affect abnormal, judgement normal, mood anxious. [] Current Patient Data: Vital Signs: Vital Signs Date Time Temp Pulse Resp B/P (MAP) Pulse Ox O2 Delivery O2 Flow Rate FiO2 12/08/19 01:41 97.6 80 18 129/83 (98) 96 Room Air 97.6 EKG: EKG: [] Radiology/Procedures: Radiology/Procedures: [] Course & Med Decision Making: Course & Med Decision Making Pertinent Labs and Imaging studies reviewed. (See chart for details) [] Dragon Disclaimer: Dragon Disclaimer: This electronic medical record was generated, in whole or in part, using a voice recognition dictation system. Stable, patient given Cortisporin otic to use 4 drops 4 times a day right ear. Patient has a right otitis externa. Dose of tramadol given. Limited number of hydrocodone given #8 Departure Departure Impression: Primary Impression: Right otitis externa Qualified Codes: H60.331 - Swimmer's ear, right ear Disposition: HOME, SELF-CARE Condition: STABLE Referrals: NO PCP (PCP) Patient Instructions: Otitis Externa, [id number] Additional Instructions: Use the Cortisporin eardrops 4 drops 4 times a day right ear for the next 5 to 7 days, take ibuprofen or Tylenol for pain Scripts Hydrocodone/Apap 5-325 (NORCO 5-325 TABLET) 1 Each Tablet 1 TAB PO TID for severe ear pain, #8 TAB Prov: MERY MCNEILL DO 12/08/19 Justicifation of Admission Dx: Justifications for Admission: Justification of Admission Dx: N/A MERY MCNEILL DO Dec 08, 2019 02:04
[2019-12-08 02:22] VITALS: BP 124/78
[2019-12-08] MEDS ORDERED: NEOMYCIN/POLYMYXIN/HC OTIC SUSPENSION 10ML BOTTLE. AD ONE (02:30)
[2019-12-08] MEDS ORDERED: traMADol 50 MG TABLET PO ONE (02:30)
== END 2019-12-08 02:24 | disposition home or self-care (01) ==
LOC: ER 01:31
DX: H60.331 Swimmer's ear, right ear (principal); F31.9 Bipolar disorder, unspecified; F17.200 Nicotine dependence, unspecified, uncomplicated
CPT/HCPCS: 99283

== ENCOUNTER 2020-06-26 19:34 | Emergency (ER) | payer SELFPAY ==
[~2020-06-26] VITALS: Ht 162.6 cm; Wt 72.0 kg
[2020-06-26] MEDS ORDERED: IV NORMAL SALINE 1000ML BAG 1,000 ML IV ONE (21:15)
[2020-06-26] MEDS ORDERED: MORPHINE SULFATE 4 MG/ML VIAL. IV ONE (21:15)
[2020-06-26] MEDS ORDERED: ONDANSETRON PF 4 MG/2 ML VIAL. IV ONE (21:15)
[2020-06-26 21:29] LABS: BILIRUBIN,URINE NEGATIVE (NEG); CLARITY,URINE CLEAR; COLOR,URINE YELLOW; NITRITE,URINE NEGATIVE (NEG); PH,URINE 6.5 (<5.0-8.0); PROTEIN,URINE NEGATIVE (NEG-TRACE); UROBILINOGEN,URINE 0.2 mg/dL (0.2 mg/dL)
[2020-06-26 21:36] LABS: BACTERIA,URINE FEW /HPF (0-FEW); RBC,URINE OCC /HPF (0-2)
[2020-06-26 21:38] LABS: BASO # 0.1 x10^3/uL (0.0-0.2); BASO % 1 % (0-3); EOS # 0.3 x10^3/uL (0.0-0.7); EOS % 2 % (0-3); HEMATOCRIT 41.9 % (36.0-47.0); HEMOGLOBIN 14.1 g/dL (12.0-15.5); LYMPH % 12 % (24-48); MEAN CORPUSCULAR HEMOGLOBIN 28 pg (25-35); MEAN CORPUSCULAR HGB CONC 34 g/dL (31-37); MEAN CORPUSCULAR VOLUME 84 fL (79-100); MONO # 0.8 x10^3/uL (0.0-1.1); MONO % 5 % (0-9); NEUT # 13.4 x10^3/uL (1.8-7.7); NEUT % 81 % (31-73); PLATELET COUNT 252 x10^3/uL (140-400); RED BLOOD COUNT 4.97 x10^6/uL (3.50-5.40); RED CELL DISTRIBUTION WIDTH 14.2 % (11.5-14.5); WHITE BLOOD COUNT 16.5 x10^3/uL (4.0-11.0)
[2020-06-26 21:40] LABS: U PREG PATIENT NEGATIVE (NEG)
[2020-06-26 21:45] LABS: CALCIUM 8.8 mg/dL (8.5-10.1); CREATININE 0.8 mg/dL (0.6-1.0); GFR 87.4; POTASSIUM 4.2 mmol/L (3.5-5.1)
[2020-06-26 21:53] LABS: ALBUMIN 3.4 g/dL (3.4-5.0); TOTAL BILIRUBIN 0.3 mg/dL (0.2-1.0); TOTAL PROTEIN 6.8 g/dL (6.4-8.2)
[2020-06-26 22:08] LABS: % EOS 3 % (0-5); % LYMPHS 11 % (24-48); % MONOS 4 % (0-10); % SEGS 82 % (35-66); PLT ESTIMATE ADEQUATE (ADEQUATE)
--- NOTE | 2020-06-26 22:35 | RAD ---
INDICATION: Reason: LLQ PAIN, CONCERNS OF OVARIAN CYST Tech knows / Spl. Instructions: / History: COMPARISON: October 2017 TECHNIQUE: Grayscale and color ultrasound images uterus and adnexa. Transabdominal and transvaginal images obtained. Transvaginal images were needed to better visualize structures that were limited on transabdominal imaging. FINDINGS: Uterus: 65 x 41 x 26 mm. Endometrial stripe is 9 mm Right Ovary: 30 x 16 x 13 mm. Left Ovary: 26 x 22 x 18 mm. Vascular flow identified to bilateral ovaries. IMPRESSION: * Vascular flow seen to the ovaries. Electronically signed by: Rajendra Vidal MD (06/26/2020 10:32 PM) [id number]
[2020-06-26] MEDS ORDERED: IBUPROFEN 400 MG TABLET. PO ONE (22:45)
[2020-06-26 23:15] VITALS: BP 96/56
[2020-06-26] MEDS ORDERED: MUPI22OI2 TP (23:15)
--- NOTE | 2020-06-26 23:15 | ED.ADGEN ---
Past Medical History Past Medical History: Anxiety, Bipolar, Depression, Other Additional Past Medical Histor: BORDERLINE PERSONALITY DISORDER, OVARIAN CYST Past Surgical History: No Surgical History Smoking Status: Current Every Day Smoker Alcohol Use: Occasionally Drug Use: Marijuana Social History Narrative: WEEKLY General Adult EDM: Chief Complaint: SKIN RASH/ABSCESS HPI: HPI: Patient is a 25 year old female, accompanied by her significant other, who presents emergency department with complaints of a abscess that drained in her left groin for that began about 10 days ago and lower left quadrant abdominal pain that began today. Patient reports her last menstrual cycle was on June 122020. She reports history of endometriosis and ovarian cysts.. She denies any irregular vaginal discharge, vaginal odor, vaginal bleeding, dysuria, hematuria, or increased urinary frequency. She denies any nausea, vomiting, diarrhea, constipation, bloody stools, fever, cough, or body aches. She currently rates the pain in her left groin a 7 out of 10 on the pain scale, pain in her abdomen is just a dull ache she says. Patient denies any alleviating factors, pain in both areas increases with palpation. Review of Systems: Review of Systems: Complete ROS is negative unless otherwise noted in HPI. Current Medications: Current Medications Medications (Trade) Dose Ordered Sig/[facility] Start Time Stop Time Status Last Admin Dose Admin Ibuprofen (Motrin) 400 mg 1X ONCE 06/26/20 22:45 06/26/20 22:46 DC 06/26/20 22:51 400 MG Morphine Sulfate (Morphine Sulfate) 4 mg 1X ONCE 06/26/20 21:15 06/26/20 21:16 DC 06/26/20 21:37 4 MG Ondansetron HCl (Zofran) 4 mg 1X ONCE 06/26/20 21:15 06/26/20 21:16 DC 06/26/20 21:36 4 MG Sodium Chloride 1,000 ml @ 1,000 mls/hr 1X ONCE 06/26/20 21:15 06/26/20 22:14 DC 06/26/20 21:37 1,000 MLS/HR Allergies: Allergies: Allergies Coded Allergies Type Severity Reaction Last Updated Verified No Known Drug Allergies 08/11/14 No Physical Exam: PE: See Above Constitutional: Well developed, well nourished, no acute distress, non-toxic appearance. [] HENT: Normocephalic, atraumatic, bilateral external ears normal, nose normal. [] Eyes: PERRLA, EOMI, conjunctiva normal, no discharge. [] Neck: Normal range of motion, no stridor. [] Cardiovascular:Heart rate regular rhythm Lungs & Thorax: Respirations even and unlabored, no retractions, no respiratory distress Abdomen: soft, L pelvic TTP no rebound tenderness, no palpable mass, no pulsatile mass, Skin: Warm, dry,; 1 cm diameter area of erythema to left groin, non fluctuant Extremities: No cyanosis, ROM intact, no edema. [] Neurologic: Alert and oriented X 3, no focal deficits noted. [] Psychologic: Affect normal, judgement normal, mood normal. [] Current Patient Data: Labs: Laboratory Tests Test 06/26/20 21:06 06/26/20 21:21 06/26/20 21:30 Urine Collection Type Unknown Urine Color Yellow Urine Clarity Clear Urine pH 6.5 (<5.0-8.0) Urine Specific [place] 1.015 (1.000-1.030) Urine Protein Negative mg/dL (NEG-TRACE) Urine Glucose (UA) Negative mg/dL (NEG) Urine Ketones (Stick) Negative mg/dL (NEG) Urine Blood Negative (NEG) Urine Nitrite Negative (NEG) Urine Bilirubin Negative (NEG) Urine Urobilinogen Dipstick 0.2 mg/dL (0.2 mg/dL) Urine Leukocyte Esterase Moderate (NEG) Urine RBC Occ /HPF (0-2) Urine WBC 1-4 /HPF (0-4) Urine Squamous Epithelial Cells Mod /LPF Urine Bacteria Few /HPF (0-FEW) Urine Mucus Slight /LPF Urine Test Negative (NEG) POC Urine HCG, Qualitative Hcg negative (Negative) White Blood Count 16.5 x10^3/uL (4.0-11.0) H Red Blood Count 4.97 x10^6/uL (3.50-5.40) Hemoglobin 14.1 g/dL (12.0-15.5) Hematocrit 41.9 % (36.0-47.0) Mean Corpuscular Volume 84 fL (79-100) Mean Corpuscular Hemoglobin 28 pg (25-35) Mean Corpuscular Hemoglobin Concent 34 g/dL (31-37) Red Cell Distribution Width 14.2 % (11.5-14.5) Platelet Count 252 x10^3/uL (140-400) Neutrophils (%) (Auto) 81 % (31-73) H Lymphocytes (%) (Auto) 12 % (24-48) L Monocytes (%) (Auto) 5 % (0-9) Eosinophils (%) (Auto) 2 % (0-3) Basophils (%) (Auto) 1 % (0-3) Neutrophils # (Auto) 13.4 x10^3/uL (1.8-7.7) H Lymphocytes # (Auto) 2.0 x10^3/uL (1.0-4.8) Monocytes # (Auto) 0.8 x10^3/uL (0.0-1.1) Eosinophils # (Auto) 0.3 x10^3/uL (0.0-0.7) Basophils # (Auto) 0.1 x10^3/uL (0.0-0.2) Segmented Neutrophils % 82 % (35-66) H Lymphocytes % 11 % (24-48) L Monocytes % 4 % (0-10) Eosinophils % 3 % (0-5) Platelet Estimate Adequate (ADEQUATE) Sodium Level 137 mmol/L (136-145) Potassium Level 4.2 mmol/L (3.5-5.1) Chloride Level 104 mmol/L (98-107) Carbon Dioxide Level 24 mmol/L (21-32) Anion Gap 9 (6-14) Blood Urea Nitrogen 10 mg/dL (7-20) Creatinine 0.8 mg/dL (0.6-1.0) Estimated GFR (Cockcroft-Gault) 87.4 BUN/Creatinine Ratio 13 (6-20) Glucose Level 84 mg/dL (70-99) Calcium Level 8.8 mg/dL (8.5-10.1) Total Bilirubin 0.3 mg/dL (0.2-1.0) Aspartate Amino Transferase (AST) 24 U/L (15-37) Alanine Aminotransferase (ALT) 29 U/L (14-59) Alkaline Phosphatase 86 U/L (46-116) Total Protein 6.8 g/dL (6.4-8.2) Albumin 3.4 g/dL (3.4-5.0) Albumin/Globulin Ratio 1.0 (1.0-1.7) Laboratory Tests 06/26/20 21:30 Laboratory Tests 06/26/20 21:30 Vital Signs: Vital Signs Date Time Temp Pulse Resp B/P (MAP) Pulse Ox O2 Delivery O2 Flow Rate FiO2 06/26/20 22:29 69 16 111/53 (72) 99 Room Air 06/26/20 21:43 98.1 98.1 EKG: EKG: [] Heart Score: Risk Factors: Risk Factors: DM, Current or recent (<one month) smoker, HTN, HLP, family history of CAD, obesity. Risk Scores: Score 0 - 3: 2.5% MACE over next 6 weeks - Discharge Home Score 4 - 6: 20.3% MACE over next 6 weeks - Admit for Clinical Observation Score 7 - 10: 72.7% MACE over next 6 weeks - Early Invasive Strategies Radiology/Procedures: Radiology/Procedures: PROCEDURE: TRANSVAGINAL INDICATION: Reason: LLQ PAIN, CONCERNS OF OVARIAN CYST Tech knows / Spl. Instructions: / History: COMPARISON: October 2017 TECHNIQUE: Grayscale and color ultrasound images uterus and adnexa. Transabdominal and transvaginal images obtained. Transvaginal images were needed to better visualize structures that were limited on transabdominal im aging. FINDINGS: Uterus: 65 x 41 x 26 mm. Endometrial stripe is 9 mm Right Ovary: 30 x 16 x 13 mm. Left Ovary: 26 x 22 x 18 mm. Vascular flow identified to bilateral ovaries. IMPRESSION: * Vascular flow seen to the ovaries. Electronically signed by: Rajendra Vidal MD (06/26/2020 10:32 PM) DESKTOP- [id number][] Course & Med Decision Making: Course & Med Decision Making Pertinent Labs and Imaging studies reviewed. (See chart for details) [] Dragon Disclaimer: Dragon Disclaimer: This electronic medical record was generated, in whole or in part, using a voice recognition dictation system. Departure Departure Impression: Primary Impression: Left sided abdominal pain of unknown cause Additional Impression: Abscess of left groin Disposition: 01 DC HOME SELF CARE/HOMELESS Condition: STABLE Referrals: NO PCP (PCP) Patient Instructions: Abdominal Pain (Nonspecific), Abscess, [id number] Additional Instructions: Follow up with your primary care doctor or your OBGyn for further evaluation of pelvic discomfort. Tylenol or ibuprofen as needed for pain. Fill prescription and apply to abscess site twice daily until abscess has healed completely. Return to the ER if you develop a fever or your symptoms worsen. Scripts Mupirocin (MUPIROCIN OINTMENT) 22 Gm Oint...g. 1 LELE TP BID for WOUND CARE for 7 Days, #1 TUBE 0 Refills Prov: PAULA NAVARRETE APRN 06/26/20 Problem Qualifiers PAULA NAVARRETE APRN Jun 26, 2020 23:15
== END 2020-06-26 23:15 | disposition home or self-care (01) ==
LOC: ER 19:34
DX: L02.214 Cutaneous abscess of groin (principal); R10.32 Left lower quadrant pain; F41.9 Anxiety disorder, unspecified; F32.9 Major depressive disorder, single episode, unspecified; F17.200 Nicotine dependence, unspecified, uncomplicated; F12.90 Cannabis use, unspecified, uncomplicated
CPT/HCPCS: 36415; 76830; 80053; 81001; 81025; 85007; 85025; 87086; 96361; 96374; 96375; 99284; J2270; J2405; J7030

== ENCOUNTER 2020-10-16 23:51 | Emergency (ER) | payer SELFPAY ==
[~2020-10-16] VITALS: Ht 160 cm; Wt 81.8 kg
[~2020-10-16 23:51] MED LIST changes: +MUPI22OI2 TP
[2020-10-17] MEDS ORDERED: PROCHLORPERAZINE 10 MG/2 ML VIAL. IV ONE (01:15)
[2020-10-17] MEDS ORDERED: DEXAMETHASONE SOD PHOS 4 MG/ML VIAL IVP ONE (01:15)
[2020-10-17] MEDS ORDERED: diphenhydrAMINE HCL 25 MG CAPSULE PO ONE (01:15)
[2020-10-17] MEDS ORDERED: IV NORMAL SALINE 1000ML BAG 1,000 ML IV ONE (01:15)
--- NOTE | 2020-10-17 01:55 | ED.ADGEN ---
Past Medical History Past Medical History: Anxiety, Bipolar, Depression, Other Additional Past Medical Histor: BORDERLINE PERSONALITY DISORDER, OVARIAN CYST Past Surgical History: No Surgical History Smoking Status: Current Every Day Smoker Alcohol Use: Occasionally Drug Use: Marijuana General Adult EDM: Chief Complaint: HEADACHE HPI: HPI: Patient is a 25-year-old female who presents to the emergency room complaining of a migraine. Patient has a history of migraines and states this feels exactly like previous headaches. She has associated photophobia and nausea. She denies any kind of vomiting. She tried to take her sumatriptan and ibuprofen at home without any relief. She denies any fevers, chills, sweats, chest pain, shortness of breath, sore throat, numbness, weakness. Pain started when she woke up this morning. She did try to take a nap for several hours today which did not help with the pain. Review of Systems: Review of Systems: Complete ROS is negative unless otherwise documented in HPI Current Medications: Current Medications Medications (Trade) Dose Ordered Sig/Monique Start Time Stop Time Status Last Admin Dose Admin Dexamethasone Sodium Phosphate (Decadron) 10 mg 1X ONCE 10/17/20 01:15 10/17/20 01:16 DC 10/17/20 01:21 10 MG Diphenhydramine HCl (Benadryl) 25 mg 1X ONCE 10/17/20 01:15 10/17/20 01:16 DC 10/17/20 01:21 25 MG Prochlorperazine Edisylate (Compazine) 10 mg 1X ONCE 10/17/20 01:15 10/17/20 01:16 DC 10/17/20 01:21 10 MG Sodium Chloride 1,000 ml @ 30 mls/hr Q24H ONCE 10/17/20 01:15 10/18/20 01:14 10/17/20 01:21 30 MLS/HR Allergies: Allergies: Allergies Coded Allergies Type Severity Reaction Last Updated Verified No Known Drug Allergies 08/11/14 No Physical Exam: PE: General: Awake, alert, NAD. Well Nourished, well hydrated. Cooperative HEENT: Atraumatic, EOMI, PERRL, airway patent, moist oral mucosa, photophobia Neck: Supple, trachea midline Respiratory: CTA bilaterally, normal effort, no wheezing/crackles CV: RRR, no murmur, cap refill <2 GI: Soft, nondistended, nontender, no masses MSK: No obvious deformities Skin: Warm, dry, intact Neuro: A&O x3, speech NL, 5/5 strength in BUE/BLE distally and proximally, CN 2- 12 intact, cerebellar testing normal Psych: Normal affect, normal mood, not suicidal or homicidal Current Patient Data: Vital Signs: Vital Signs Date Time Temp Pulse Resp B/P (MAP) Pulse Ox O2 Delivery O2 Flow Rate FiO2 10/17/20 01:06 64 18 104/48 (66) 97 Room Air 10/17/20 00:05 97.9 97.9 EKG: EKG: [] Heart Score: C/O Chest Pain: N/A Risk Factors: Risk Factors: DM, Current or recent (<one month) smoker, HTN, HLP, family history of CAD, obesity. Risk Scores: Score 0 - 3: 2.5% MACE over next 6 weeks - Discharge Home Score 4 - 6: 20.3% MACE over next 6 weeks - Admit for Clinical Observation Score 7 - 10: 72.7% MACE over next 6 weeks - Early Invasive Strategies Radiology/Procedures: Radiology/Procedures: [] Course & Med Decision Making: Course & Med Decision Making Pertinent Labs and Imaging studies reviewed. (See chart for details) Patient is a 25yo female who presents to the emergency room complaining of a migraine. Patient has a history of migraines and this is typical of her normal migraine. Patient did not have sudden onset of severe headache that would be concerning for subarachnoid hemorrhage. Patient does not have any neurologic deficits on exam. Patient will be given a migraine cocktail. On reevaluation, patient is feeling significantly better and requesting to go home. Patient's test results and vitals while in the ED were fully reviewed and discussed with the patient. Patient is stable and at this time does not need admission to the hospital. We have discussed strict return precautions and the importance of following up with their Primary Care Physician. Patient stated understanding and was given an opportunity to ask any questions. Patient is in agreement with plan. Marcos Disclaimer: Marcos Disclaimer: This electronic medical record was generated, in whole or in part, using a voice recognition dictation system. Departure Departure Impression: Primary Impression: Migraine Disposition: HOME / SELF CARE / HOMELESS Condition: IMPROVED Referrals: NO PCP (PCP) Patient Instructions: Migraine Headache JHONY FELIZ MD October 17, 2020 01:55
[2020-10-17 02:02] VITALS: BP 116/65
== END 2020-10-17 02:02 | disposition home or self-care (01) ==
LOC: ER 23:51
DX: G43.909 Migraine, unspecified, not intractable, without status migrainosus (principal); F31.9 Bipolar disorder, unspecified; F17.200 Nicotine dependence, unspecified, uncomplicated
CPT/HCPCS: 96361; 96374; 96375; 99284; J0780; J1100; J7030; Q0163

== ENCOUNTER 2020-12-01 10:13 | Emergency (ER) | payer SELFPAY ==
[~2020-12-01] VITALS: Ht 162.6 cm; Wt 104.5 kg
--- NOTE | 2020-12-01 11:14 | RAD ---
Exam Date: 12/01/2020 10:57 AM XR EXAM OF ANKLE_RIGHT 3VIEWS, XR FOOT_RIGHT 3 VIEWS Indication: Reason: FELL, RIGHT FOOT AND ANKLE PAIN / Spl. Instructions: / History: . FINDINGS/ IMPRESSION: Ankle mortise is intact. Corticated density at the tip of the lateral malleolus suggests remote avul carol ann injury. No acute fracture or dislocation. Alignment and joint spaces are maintained. The soft tissues are w ithin normal limits. Electronically signed by: Jake Montague MD (12/01/2020 11:12 AM) [facility]
--- NOTE | 2020-12-01 11:22 | PHYS DOC ---
Past Medical History Past Medical History: Anxiety, Bipolar, Depression, Other Additional Past Medical Histor: BORDERLINE PERSONALITY DISORDER, OVARIAN CYST Past Surgical History: No Surgical History Smoking Status: Current Every Day Smoker Alcohol Use: Occasionally Drug Use: Marijuana General Adult EDM: Chief Complaint: ANKLE PROBLEM HPI: HPI: Patient is a 25 year old female who presented to ER for evaluation of right foot and ankle pain. Patient says she was walking her dog outside, she stepped onto a wet spot, spraining her right foot at 11 PM last night. Patient complains of pain whenever she walks. She denies any knee pain, no leg pain Review of Systems: Review of Systems: Constitutional: Denies fever or chills. [] Eyes: Denies change in visual acuity. [] HENT: Denies nasal congestion or sore throat. [] Respiratory: Denies cough or shortness of breath. [] Cardiovascular: Denies chest pain or edema. [] GI: Denies abdominal pain, nausea, vomiting, bloody stools or diarrhea. [] : Denies dysuria. [] Musculoskeletal: Positive for right ankle pain, right foot pain Integument: Denies rash. [] Neurologic: Denies headache, focal weakness or sensory changes. [] Endocrine: Denies polyuria or polydipsia. [] Lymphatic: Denies swollen glands. [] Psychiatric: Denies depression or anxiety. [] Heart Score: C/O Chest Pain: N/A Risk Factors: Risk Factors: DM, Current or recent (<one month) smoker, HTN, HLP, family history of CAD, obesity. Risk Scores: Score 0 - 3: 2.5% MACE over next 6 weeks - Discharge Home Score 4 - 6: 20.3% MACE over next 6 weeks - Admit for Clinical Observation Score 7 - 10: 72.7% MACE over next 6 weeks - Early Invasive Strategies Allergies: Allergies: Allergies Coded Allergies Type Severity Reaction Last Updated Verified No Known Drug Allergies 08/11/14 No Physical Exam: PE: Constitutional: Well developed, well nourished, no acute distress, non-toxic appearance. [] HENT: Normocephalic, atraumatic, bilateral external ears normal, oropharynx moist, no oral exudates, nose normal. [] Eyes: PERRLA, EOMI, conjunctiva normal, no discharge. [] Neck: Normal range of motion, no tenderness, supple, no stridor. [] Cardiovascular:Heart rate regular rhythm, no murmur [] Lungs & Thorax: Bilateral breath sounds clear to auscultation [] Abdomen: Bowel sounds normal, soft, no tenderness, no masses, no pulsatile masses. [] Skin: Warm, dry, no erythema, no rash. [] Back: No tenderness, no CVA tenderness. [] Extremities: Right foot is tender to palpation, no obvious deformity, no swelling noted. Right ankle joint is stable. No tenderness along the right leg or right knee. Neurologic: Alert and oriented X 3, normal motor function, normal sensory function, no focal deficits noted. [] Psychologic: Affect normal, judgement normal, mood normal. [] Current Patient Data: Vital Signs: Vital Signs Date Time Temp Pulse Resp B/P (MAP) Pulse Ox O2 Delivery O2 Flow Rate FiO2 12/01/20 11:03 98.3 99 20 142/76 (82) 98 Room Air 98.3 EKG: EKG: [] Radiology/Procedures: Radiology/Procedures: [][facility] [address] [place] [address] IMAGING REPORT Signed PATIENT: PATRICK HE AACCOUNT: [id number] : 1995 LOCATION: ER AGE: 25 SEX: F EXAM STATUS: PRE ER ORD. PHYSICIAN: SIERRA AVILA DO REASON: FELL, RIGHT FOOT AND ANKLE PAIN PROCEDURE: FOOT RIGHT 3V Exam Date: 12/01/2020 10:57 AM XR EXAM OF ANKLE_RIGHT 3VIEWS, XR FOOT_RIGHT 3 VIEWS Indication: Reason: FELL, RIGHT FOOT AND ANKLE PAIN / Spl. Instructions: / History: . FINDINGS/ IMPRESSION: Ankle mortise is intact. Corticated density at the tip of the lateral malleolus suggests remote avulsion injury. No acute fracture or dislocation. Alignment and joint spaces are maintained. The soft tissues are within normal limits. Electronically signed by: Wilber Matthews MD (12/01/2020 11:12 AM) [facility] DICTATED and SIGNED BY: WILBER MATTHEWS MD DATE: 12/01/20 [id number] 0 Course & Med Decision Making: Course & Med Decision Making Pertinent Labs and Imaging studies reviewed. (See chart for details) [] [place] Disclaimer: Marcos Disclaimer: This electronic medical record was generated, in whole or in part, using a voice recognition dictation system. Departure Departure Impression: Primary Impression: Right foot sprain Additional Impression: Right ankle sprain Disposition: HOME / SELF CARE / HOMELESS Condition: STABLE Referrals: NO PCP (PCP) Follow up with your doctor next week for reevaluation Patient Instructions: Ankle Sprain, Foot Sprain Additional Instructions: Thank you for visiting our Emergency Department. We appreciate you trusting us with your care. If any additional problems come up don't hesitate to return to visit us. Please follow up with your primary care provider so they can plan additional care if needed and know about the problem that you had. If symptoms worsen come back to the Emergency Department. Any concerning symptoms that start such as chest pain, shortness of air, weakness or numbness on one side of the b belinda, running high fevers or any other concerning symptoms return to the ER. SIERRA AVILA DO Dec 01, 2020 11:22
[2020-12-01 11:26] VITALS: BP 131/69
== END 2020-12-01 11:58 | disposition home or self-care (01) ==
LOC: ER 10:13
DX: S93.601A Unspecified sprain of right foot, initial encounter (principal); S93.401A Sprain of unspecified ligament of right ankle, initial encounter; F31.9 Bipolar disorder, unspecified; F17.200 Nicotine dependence, unspecified, uncomplicated; X50.9XXA Other and unspecified overexertion or strenuous movements or postures, initial encounter; Y93.K1 Activity, walking an animal; Y92.89 Other specified places as the place of occurrence of the external cause; Y99.8 Other external cause status
CPT/HCPCS: 73610; 73630; 99284

== ENCOUNTER 2021-01-18 21:24 | Emergency (ER) | payer SELFPAY ==
[2021-01-19] MEDS ORDERED: HYDR-2761 PO (18:53)
[2021-01-19] MEDS ORDERED: ORPH100T PO (18:53)
== END 2021-01-18 22:01 | disposition left against medical advice (07) ==
LOC: ER 21:24
DX: M54.5 Low back pain (principal); Z53.21 Procedure and treatment not carried out due to patient leaving prior to being seen by health care provider

== ENCOUNTER 2021-01-19 14:27 | Emergency (ER) | payer SELFPAY ==
[~2021-01-19] VITALS: Ht 165.1 cm; Wt 94.0 kg
[2021-01-19 16:16] VITALS: BP 132/86
[2021-01-19 16:33] LABS: BILIRUBIN,URINE NEGATIVE (NEG); CLARITY,URINE CLEAR; NITRITE,URINE NEGATIVE (NEG); PH,URINE 6.5 (<5.0-8.0); PROTEIN,URINE NEGATIVE (NEG-TRACE); UROBILINOGEN,URINE 0.2 mg/dL (0.2 mg/dL)
[2021-01-19 16:41] LABS: BACTERIA,URINE MANY /HPF (0-FEW); COLOR,URINE STRAW
[2021-01-19 16:42] LABS: RBC,URINE 0 /HPF (0-2); WBC,URINE OCC /HPF (0-4)
[2021-01-19] MEDS ORDERED: ORPHENADRINE CITRATE 60 MG/2 ML VIAL. IM ONE (18:00)
[2021-01-19] MEDS ORDERED: MORPHINE SULFATE 4 MG/ML INJ. IM ONE (18:00)
--- NOTE | 2021-01-19 18:44 | RAD ---
Exam: 1. CT thoracic spine without contrast 2. CT lumbar spine without contrast CLINICAL HISTORY: Reason: fall, pain / Spl. Instructions: / History: COMPARISON: None available. TECHNIQUE: CT of the thoracic and lumbar spine was performed without IV contrast. Axial, sagittal and coronal reformatted images were also performed. PQRS compliance statement - One or more of the following individualized dose reduction techniques wer e utilized for this study: 1. Automated exposure control 2. Adjustment of the mA and/or kV according to patient size 3. Use of iterative reconstruction technique FINDINGS: Thoracic spine: Vertebral body heights are preserved. Disc heights are preserved. No spondylolisthesis. No acute frac ture. No significant central canal stenosis. Lumbar spine: Vertebral body heights are preserved. No acute fracture. Disc heights are preserved. No spondylolisthesis. No significant central canal stenosis.. IMPRESSION: No acute thoracic or lumbar spine fracture or subluxation. Electronically signed by: Bryan Boston MD (01/19/2021 6:42 PM) TERRI
[2021-01-19] MEDS ORDERED: HYDR-2761 PO (18:53)
[2021-01-19] MEDS ORDERED: ORPH100T PO (18:53)
--- NOTE | 2021-01-19 18:54 | PHYS DOC ---
Past Medical History Past Medical History: Anxiety, Bipolar, Depression, Other Additional Past Medical Histor: BORDERLINE PERSONALITY DISORDER, OVARIAN CYST Past Surgical History: No Surgical History Smoking Status: Current Every Day Smoker Alcohol Use: Occasionally Drug Use: Marijuana General Adult EDM: Chief Complaint: BACK PAIN - NO INJURY HPI: HPI: Patient is a 25 year old female who presents with patient is here after she fell on her tailbone that she is getting the other day causing her back pain to "act up." She states that she went to [facility] and they gave her a Toradol shot and told her she could come here to the ER to have a work-up for multiple sclerosis consent runs in her family. She states that she will be walking but her legs will just fall out underneath her. She states is been going on for years. She states that her chiropractor took x-rays of her back and brought the x-rays in to the ED. She is here wanting scans. She rates her pain a 10 out of 10. She denies any numbness or tingling, loss of bowel bladder, focal weakness. Review of Systems: Review of Systems: Constitutional: Denies fever or chills. [] Eyes: Denies change in visual acuity. [] HENT: Denies nasal congestion or sore throat. [] Respiratory: Denies cough or shortness of breath. [] Cardiovascular: Denies chest pain or edema. [] GI: Denies abdominal pain, nausea, vomiting, bloody stools or diarrhea. [] : Denies dysuria. [] Musculoskeletal: +Bilateral lower back pain or denies joint pain. [] Integument: Denies rash. [] Neurologic: Denies headache, focal weakness or sensory changes. [] Endocrine: Denies polyuria or polydipsia. [] Lymphatic: Denies swollen glands. [] Psychiatric: Denies depression or anxiety. [] Heart Score: C/O Chest Pain: No Risk Factors: Risk Factors: DM, Current or recent (<one month) smoker, HTN, HLP, family history of CAD, obesity. Risk Scores: Score 0 - 3: 2.5% MACE over next 6 weeks - Discharge Home Score 4 - 6: 20.3% MACE over next 6 weeks - Admit for Clinical Observation Score 7 - 10: 72.7% MACE over next 6 weeks - Early Invasive Strategies Current Medications: Current Medications Medications (Trade) Dose Ordered Sig/[facility] Start Time Stop Time Status Last Admin Dose Admin Morphine Sulfate (Morphine Sulfate) 4 mg 1X ONCE 01/19/21 18:00 01/19/21 18:10 DC 01/19/21 18:17 4 MG Orphenadrine Citrate (Norflex) 60 mg 1X ONCE 01/19/21 18:00 01/19/21 18:10 DC 01/19/21 18:15 60 MG Allergies: Allergies: Allergies Coded Allergies Type Severity Reaction Last Updated Verified No Known Drug Allergies 08/11/14 No Physical Exam: PE: Constitutional: Well developed, well nourished, no acute distress, non-toxic appearance. [] HENT: Normocephalic, atraumatic, bilateral external ears normal, oropharynx moist, no oral exudates, nose normal. [] Eyes: PERRLA, EOMI, conjunctiva normal, no discharge. [] Neck: Normal range of motion, no tenderness, supple, no stridor. [] Cardiovascular:Heart rate regular rhythm, no murmur [] Lungs & Thorax: Bilateral breath sounds clear to auscultation [] Abdomen: Bowel sounds normal, soft, no tenderness, no masses, no pulsatile masses. [] Skin: Warm, dry, no erythema, no rash. [] Back: Bilateral lower midline tenderness, no CVA tenderness. [] Extremities: No tenderness, no cyanosis, no clubbing, ROM intact, no edema. [] Neurologic: Alert and oriented X 3, normal motor function, normal sensory function, no focal deficits noted. [] Psychologic: Affect normal, judgement normal, mood normal. [] Current Patient Data: Labs: Laboratory Tests Test 01/19/21 16:26 01/19/21 16:29 Urine Collection Type Void Urine Color Straw Urine Clarity Clear Urine pH 6.5 (<5.0-8.0) Urine Specific [place] <=1.005 (1.000-1.030) Urine Protein Negative mg/dL (NEG-TRACE) Urine Glucose (UA) Negative mg/dL (NEG) Urine Ketones (Stick) Negative mg/dL (NEG) Urine Blood Negative (NEG) Urine Nitrite Negative (NEG) Urine Bilirubin Negative (NEG) Urine Urobilinogen Dipstick 0.2 mg/dL (0.2 mg/dL) Urine Leukocyte Esterase Small (NEG) Urine RBC 0 /HPF (0-2) Urine WBC Occ /HPF (0-4) Urine Squamous Epithelial Cells Many /LPF Urine Bacteria Many /HPF (0-FEW) POC Urine HCG, Qualitative Hcg negative (Negative) Vital Signs: Vital Signs Date Time Temp Pulse Resp B/P (MAP) Pulse Ox O2 Delivery O2 Flow Rate FiO2 01/19/21 18:17 16 99 Room Air 01/19/21 16:16 98.4 78 132/86 (89) 98.4 EKG: EKG: [] Radiology/Procedures: Radiology/Procedures: [] Impression: [facility] [address] [place] [address] IMAGING REPORT Signed PATIENT: PATRICK HE AACCOUNT: [id number] : 1995 LOCATION: ER AGE: 25 SEX: F EXAM STATUS: REG ER ORD. PHYSICIAN: PATY PERLA APRN REASON: fall, pain PROCEDURE: CT LUMBAR SPINE WO CONTRAST Exam: 1. CT thoracic spine without contrast 2. CT lumbar spine without contrast CLINICAL HISTORY: Reason: fall, pain / Spl. Instructions: / History: COMPARISON: None available. TECHNIQUE: CT of the thoracic and lumbar spine was performed without IV contrast . Axial, sagittal and coronal reformatted images were also performed. PQRS compliance statement - One or more of the following individualized dose reduction techniques were utilized for this study: 1. Automated exposure control 2. Adjustment of the mA and/or kV according to patient size 3. Use of iterative reconstruction technique FINDINGS: Thoracic spine: Vertebral body heights are preserved. Disc heights are preserved. No spondylolisthesis. No acute fracture. No significant central canal stenosis. Lumbar spine: Vertebral body heights are preserved. No acute fracture. Disc heights are preserved. No spondylolisthesis. No significant central canal stenosis.. IMPRESSION: No acute thoracic or lumbar spine fracture or subluxation. Electronically signed by: Bryan Boston MD (01/19/2021 6:42 PM) [facility] DI[facility]ATED and SIGNED BY: BRYAN BOSTON MD DATE: 01/19/21 [id number] 0 Course & Med Decision Making: Course & Med Decision Making Pertinent Labs and Imaging studies reviewed. (See chart for details) See HPI. Alert and oriented x4. Ambulatory with a slow steady gait. She is moving her bilateral lower extremities. She is able to take herself to the restroom can get up out of a chair and go to the toilet. Speaks in full clear sentences. She does have focal bony spinal tenderness to the lumbar and sacral area. She does have a primary care provider. Skin pink warm and dry. No deformity to any extremities or swelling. No saddle paresthesia. CT scan shows no acute findings. Patient was given morphine and Norflex in the ED. She is to follow-up with her primary care doctor and get a referral for neurology. I also gave her a [facility] pamphlet with a neurologist on them for her to call. [] Marcos Disclaimer: Marcos Disclaimer: This electronic medical record was generated, in whole or in part, using a voice recognition dictation system. Departure Departure Impression: Primary Impression: Chronic low back pain Qualified Codes: M54.5 - Low back pain; G89.29 - Other chronic pain Additional Impressions: Sacral pain Fall Qualified Codes: W19.XXXA - Unspecified fall, initial encounter Disposition: HOME / SELF CARE / HOMELESS Condition: STABLE Referrals: ROSAURA TAO DO (PCP) Patient Instructions: Chronic Back Pain, Low Back Strain with Rehab-SportsMed Additional Instructions: Follow-up with primary care provider soon as possible. I have referred you to a neurologist. Take medication as prescribed and with food. Scripts Orphenadrine Citrate (ORPHENADRINE CITRATE) 100 Mg Tablet.er 1 TAB PO BID, #10 TAB Prov: PATY PERLA APRN 01/19/21 Hydrocodone Bit/Acetaminophen (HYDROCODONE-APAP 5-325 ) 1 Tab Tablet 1 TAB PO PRN Q6HRS PRN for PAIN, #6 TAB 0 Refills Prov: PATY PERLA APRN 01/19/21 PATY PERLA APRN Jan 19, 2021 18:54
== END 2021-01-19 19:11 | disposition home or self-care (01) ==
LOC: ER 14:27
DX: M54.5 Low back pain (principal); G89.11 Acute pain due to trauma; G89.29 Other chronic pain; M53.3 Sacrococcygeal disorders, not elsewhere classified; M54.6 Pain in thoracic spine; F31.9 Bipolar disorder, unspecified; F17.200 Nicotine dependence, unspecified, uncomplicated; W18.39XA Other fall on same level, initial encounter; Y93.89 Activity, other specified; Y92.89 Other specified places as the place of occurrence of the external cause; Y99.8 Other external cause status
CPT/HCPCS: 72128; 72131; 81001; 81025; 87086; 96372; 99285; J2270; J2360

== ENCOUNTER 2021-10-16 16:59 | Emergency (ER) | payer SELFPAY ==
[~2021-10-16] VITALS: Ht 160 cm; Wt 87.4 kg
[~2021-10-16 16:59] MED LIST changes: +CYCL10TA19 PO; -CYCL10TA2 PO; +HYDR-2761 PO; +ORPH100T PO
[2021-10-16] MEDS ORDERED: DIPHTH,PERTUSS(ACELL),TET TOX 0.5 ML DISP.SYRIN. VAX IM ONE (17:30)
[2021-10-16] MEDS ORDERED: KETOROLAC 30 MG/ML VIAL. IM ONE (17:30)
[2021-10-16] MEDS ORDERED: AMOX1TAB61 PO (18:01)
--- NOTE | 2021-10-16 18:01 | PHYS DOC ---
Past Medical History Past Medical History: Anxiety, Bipolar, Depression, Other Additional Past Medical Histor: BORDERLINE PERSONALITY DISORDER, OVARIAN CYST Past Surgical History: No Surgical History Smoking Status: Current Every Day Smoker Alcohol Use: Occasionally Drug Use: Marijuana General Adult EDM: Chief Complaint: ANIMAL BITE HPI: HPI: Patient is a 26 year old female who presents with dog bite to the right forearm. Patient is joined at bedside with her . Patient and her are familiar with this particular dog, which frequently runs their neighborhood. Typically, when the dog starts barking at them from a distance, they will avoid the dog and go the other way. Today, patient states that she got closer, and the dog bit her. She has already contacted the [facility] to file a report. Patient reports pain extending from her proximal/mid forearm extending down into her hands and fingers. She also reports a "pins and needle" sensation. Patient has not had a tetanus vaccine in the last 5 years. She has no other injuries or complaints at this time. Review of Systems: Review of Systems: ROS negative or noncontributory except as mentioned in HPI. Heart Score: C/O Chest Pain: No Current Medications: Current Medications Medications (Trade) Dose Ordered Sig/Monique Start Time Stop Time Status Last Admin Dose Admin Diphtheria/ Tetanus/Acell Pertussis (Boostrix) 0.5 ml ONCE ONCE 10/16/21 17:30 10/16/21 17:31 DC Ketorolac Tromethamine (Toradol 30mg Vial) 30 mg 1X ONCE 10/16/21 17:30 10/16/21 17:31 DC Allergies: Allergies: Allergies Coded Allergies Type Severity Reaction Last Updated Verified No Known Drug Allergies 08/11/14 No Physical Exam: PE: Constitutional: Well developed, well nourished, disheveled, no acute distress. HENT: Normocephalic, atraumatic, bilateral external ears normal. Eyes: EOMI, conjunctiva normal, no discharge. Neck: Normal range of motion, no step-off, no tenderness, no stridor. Skin: Multiple, punctate wounds as well as superficial abrasions noted to the right forearm consistent with dog bite. Skin otherwise warm, dry, no erythema, no rash. Back: No step-off, no tenderness. Extremities: Right forearm and wrist tender to palpation, active range of motion of right wrist limited secondary to pain, cap refill less than 2 seconds, radial pulses 2+ and symmetrical. Extremities otherwise no tenderness, no cyanosis, no clubbing, ROM intact, no edema. Neurologic: Alert and oriented x4, normal motor function, normal sensory function, no focal deficits noted. Current Patient Data: Vital Signs: Vital Signs Date Time Temp Pulse Resp B/P (MAP) Pulse Ox O2 Delivery O2 Flow Rate FiO2 10/16/21 18:25 78 18 110/68 (82) 98 Room Air 10/16/21 17:05 98.3 81 18 116/72 (87) 98 Room Air 98.3 Radiology/Procedures: Radiology/Procedures: PROCEDURE: FOREARM RIGHT EXAM: XR FOREARM_RIGHT 2 VIEWS 10/16/2021 5:31 PM CLINICAL INDICATION: Dog bite COMPARISON: None TECHNIQUE: AP and lateral views of the right forearm FINDINGS: No acute fracture. Alignment is normal. There is soft tissue gas at the distal ulnar aspect of the forearm and mid to distal radial aspect of the forearm. No radiopaque foreign body. IMPRESSION: Scattered soft tissue gas in the distal forearm consistent with the patient's injury. No foreign body or acute osseous abnormality. Electronically signed by: Akiko Phillip MD (10/16/2021 7:10 PM) [facility] Course & Med Decision Making: Course & Med Decision Making Pertinent Labs and Imaging studies reviewed. (See chart for details) Patient is a 26-year-old female who presents with a dog bite to her right forearm. Tetanus vaccine was administered here in the department. I discussed risk versus benefit of rabies vaccination, patient has declined. Patient provided with electronic prescription for antibiotics. Wound care instruction and return precautions were provided. Patient understands and is agreeable to discharge plan. Dragon Disclaimer: Dragon Disclaimer: This electronic medical record was generated, in whole or in part, using a voice recognition dictation system. Departure Departure Impression: Primary Impression: Dog bite of right forearm without complication Qualified Codes: S51.851A - Open bite of right forearm, initial encounter; W54.0XXA - Bitten by dog, initial encounter Disposition: HOME / SELF CARE / HOMELESS Condition: STABLE Referrals: ROSAURA TAO DO (PCP) Patient Instructions: Animal Bite, [id number] Additional Instructions: EMERGENCY DEPARTMENT GENERAL DISCHARGE INSTRUCTIONS Thank you for coming to [facility] Emergency Department (ED) today and trusting us with you care. We trust that you had a positive experience in our Emergency Department. If you wish to speak to the department management, you may call the director at . YOUR FOLLOW UP INSTRUCTIONS ARE FOLLOWS: 1. Follow up with your primary care doctor. If you do not have a primary doctor, please ask for a resource list of physicians or clinics that may be able to assist you with follow up care. 2. The emergency provider has interpreted your imaging studies, if any were ordered. The radiology retail zone specialist also reviewed them. If there is a change in the findings, you will be notified in 48 hours when at all possible. 3. If a lab test or culture has been done, your results will be reviewed and you will be notified if you need a change in treatment. 4. Follow instructions verbalized to you and refer to the printouts if needed. ADDITIONAL INSTRUCTIONS AND INFORMATION: 1. Your care today has been supervised by a physician who is specially trained in emergency care. Many problems require more than one evaluation for a complete diagnosis and treatment. We recommend that you schedule your follow up appointment as recommended to ensure complete treatment of you illness or injury. If you are unable to obtain follow up care and continue to have a problem, or if your condition worsens, we recommend that you return to the ED. 2. We are not able to safely determine your condition over the phone nor are we able to give sound medical advice over the phone. For these safety reasons, if you call for medical advice we will ask you to come to the ED for further evaluation. 3. If you have any questions regarding these discharge instructions please call the ED at . SAFETY INFORMATION: In the interest of safety, wellness, and injury prevention; we encourage you to wear your seat belt, if you smoke; quite smoking, and we encourage family to use a protective helmet for bicycling and other sporting events that present an increased risk for head injury. IF YOUR SYMPTOMS WORSEN OR NEW SYMPTOMS DEVELOP, OR YOU HAVE CONCERNS ABOUT YOUR CONDITION; OR IF YOUR CONDITION WORSENS WHILE YOU ARE WAITING FOR YOUR FOLLOW UP APPOINTMENT; EITHER CONTACT YOUR PRIMARY CARE DOCTOR, THE PHYSICIAN WHOSE NAME AND NUMBER YOU WERE GIVEN, OR RETURN TO THE ED IMMEDIATELY. Scripts Amoxicillin/Potassium Clav (AUGMENTIN 875-125 TABLET) 1 Each Tablet 1 TAB PO BID for 5 Days, #10 TAB 0 Refills Prov: LIZ JUSTIN 10/16/21 LIZ JUSTIN October 16, 2021 18:01
[2021-10-16] MEDS ORDERED: NEOMY/BACITR/POLYMYXIN OINT PACKET. TP ONE (18:11)
[2021-10-16 18:25] VITALS: BP 110/68
--- NOTE | 2021-10-16 19:13 | RAD ---
EXAM: XR FOREARM_RIGHT 2 VIEWS 10/16/2021 5:31 PM CLINICAL INDICATION: Dog bite COMPARISON: None TECHNIQUE: AP and lateral views of the right forearm FINDINGS: No acute fracture. Alignment is normal. There is soft tissue gas at the distal ulnar aspec t of the forearm and mid to distal radial aspect of the forearm. No radiopaque foreign body. IMPRESSION: Scattered soft tissue gas in the distal forearm consistent with the patient's injury. No foreign body or acute osseous abnormality. Electronically signed by: Akiko Phillip MD (10/16/2021 7:10 PM) [facility]
== END 2021-10-16 18:41 | disposition home or self-care (01) ==
LOC: ER 16:59
DX: S51.851A Open bite of right forearm, initial encounter (principal); F31.9 Bipolar disorder, unspecified; F17.200 Nicotine dependence, unspecified, uncomplicated; W54.0XXA Bitten by dog, initial encounter; Y93.89 Activity, other specified; Y92.89 Other specified places as the place of occurrence of the external cause; Y99.8 Other external cause status
CPT/HCPCS: 73090; 90471; 90715; 96372; 99284; J1885